=== PATIENT | female | born 1950 | race African-American/Black ===

== ENCOUNTER 2016-11-09 06:18 | Day surgery (SDC) | payer MEDICARE ==
[2016-11-08 10:14] VITALS: BMI 36.6
[~2016-11-09 06:18] MED LIST: HYDROmorphone 1 MG/ML 1 ML SYRINGE IVP PRN; LACTATED RINGERS 1,000 ML IV SCH; LIDOCAINE 1% 20 ML VIAL (10MG/ML) FOR IV START INTRADERMA PRN; MIDAZOLAM 2 MG/2 ML VIAL IV PRN; Pre Op ABX Message 1 EACH MISC MISCELLANE ONE
[2016-11-09] MEDS: PHENYLEPHRINE 10% OPHTH DROPS 5 ML BTL OP ONE ×3 (06:40→06:53)
[2016-11-09] MEDS: CYCLOPENTOLATE 1% OPHTH SOLN 2 ML BTL OP ONE ×3 (06:43→06:51)
[2016-11-09 06:57] VITALS: TEMP 98.1
[2016-11-09 07:04] LABS: Glucose,Whole Blood 173 mg/dL (75-99)
[2016-11-09] MEDS: FLURBIPROFEN 0.03% OPHTH DROPS 2.5 ML BTL OP ONE ×2 (07:24→07:34)
[2016-11-09] MEDS: BUPIVACAINE (PF) 0.75% 5 ML, LIDOCAINE 4% (PF) 5 ML, HYALURONIDASE, HUMAN RECOMB 150 UNIT MISCELLANE ONE ×6 (07:37→07:51)
[2016-11-09] MEDS ORDERED: MIDAZOLAM 2 MG/2 ML VIAL ONE (07:45)
[2016-11-09] MEDS ORDERED: PROPOFOL 10 MG/ML 20 ML VIAL IV ONE (07:45)
[2016-11-09] MEDS ORDERED: LABETALOL 5 MG/ML VIAL MDV ONE (07:45)
[2016-11-09] MEDS ORDERED: EPINEPHrine (PF) 0.5 ML in BALANCED SALT IRRIG SOLN COMB2 500 ML IRRIGATION ONE (07:54)
[2016-11-09] MEDS ORDERED: BALANCED SALT IRRIG SOLN COMB2 15 ML IRRIG.SOLN IRRIGATION ONE (07:56)
[2016-11-09] MEDS ORDERED: TETRACAINE 0.5% OPHTH (PF) DROPS 4 ML BTL LEFT EYE ONE (08:02)
[2016-11-09] MEDS ORDERED: HYALURONATE SODIUM INTRAOCULAR 1 EACH SYRINGE (10MG/ML) INTRAOCULA ONE (08:02)
--- NOTE | 2016-11-09 08:17 | P.OP ---
Date of Procedure: 11/09/16 Procedure(s) Performed: PREOPERATIVE DIAGNOSIS: Cataract, left eye. POSTOPERATIVE DIAGNOSIS: Cataract, left eye. OPERATION: Phacoemulsification cataract, left eye. DESCRIPTION OF PROCEDURE: The patient was taken to the preoperative holding area. Intravenous Propofol was given so as to bring about adequate sedation. The following mixture was given for local anesthesia: 5 mL of 2% lidocaine, 5 mL of 0.75% Marcaine, and 1 mL of Wydase. Approximately 4 mL was injected in the retrobulbar space of the surgical eye. Additional 1 mL was then directed to the temporal area of the surgical eye. This was performed to allow adequate neurological block of the facial muscles. The patient was revived and then taken into the operative room. The patient was prepped and draped in the usual sterile manner for the operative eye. A lid speculum was put into position. The conjunctiva was resected back from the limbus in the 12 o'clock position. Bleeding was controlled with electrocautery. A #69 blade was then used and a half-thickness scleral incision approximately 1-mm posterior to the limbus was made on bare sclera. This was shelved in the clear cornea using a crescent knife. Next a 15-degree blade was used to make a stab incision at the 3 o' clock position at the corneolimbal interface. Keratome blade was then used and the superior wound was extended into the anterior chamber. Viscoelastic was injected into the anterior chamber and to maintain its form. Next, a cystotome was used and a continuous anterior capsulotomy was made without difficulty. Hydrodissection using a blunt cannula and BSS was performed. Phaco probe was then employed and a groove extending from 12 to 6 o'clock in the lens was created. A Franco wand was used through the stab incision so as to perform a divide and conquer technique. Next an irrigation aspiration probe was utilized and any residual cortex was removed from the eye. Again, viscoelastic was injected into the anterior chamber. An Edis posterior chamber lens implant was placed in the cartridge and injected into the anterior chamber without difficulty. The SinAlignAlyticsey hook was utilized to spin the lens into position and this was again performed without any difficulty. The irrigation and aspiration probe was again employed and any residual viscoelastic was removed from the eye. Then BSS was injected into the limbal stab incision and the anterior chamber re-inflated. The conjunctiva was reapproximated using electrocautery. One drop of 0.25% Timoptic was placed over the corneal along with TobraDex ophthalmic ointment. Two sterile patches and a Stakrs eye shield were taped into position. The patient was transported to the recovery room in stable condition. Pathology: none sent Condition: stable Disposition: same day
[2016-11-09 08:18] VITALS: RESP 16
[2016-11-09 08:32] LABS: Glucose,Whole Blood 158 mg/dL (75-99)
[2016-11-09 08:33] VITALS: BP 150/92; PULSE 66
[2016-11-09] MEDS ORDERED: GENTAMICIN/PREDNISOL AC OPHTH OINT 3.5GM OPHTHALMIC ONE (23:00)
[2016-11-09] MEDS ORDERED: TIMOLOL 0.5% OPHTH SOLN (PF) 0.2 ML DROPERETTE OP ONE (23:00)
== END 2016-11-09 09:06 | disposition home or self-care (01) ==
LOC: OR 06:18
PROVIDERS: ATTEND Ophthalmology
DX: E11.36 Type 2 diabetes mellitus with diabetic cataract (principal); Z79.4 Long term (current) use of insulin; I10 Essential (primary) hypertension; E78.5 Hyperlipidemia, unspecified; I48.91 Unspecified atrial fibrillation; Z79.01 Long term (current) use of anticoagulants; F41.9 Anxiety disorder, unspecified; Z79.891 Long term (current) use of opiate analgesic; Z79.899 Other long term (current) drug therapy; Z88.5 Allergy status to narcotic agent; Z88.0 Allergy status to penicillin; Z88.8 Allergy status to other drugs, medicaments and biological substances
CPT/HCPCS: 66984; V2632; J2001; J2250; J3470; J0171; J2704

== ENCOUNTER → 2016-12-08 | Outpatient (CLI) | payer MEDICARE ==
[2016-12-08 16:04] LABS: Blood Urea Nitrogen 11 mg/dL (7-17); Non-African American GFR(MDRD) >60 (>60 ml/min/1.73 sqM)
--- NOTE | 2016-12-08 17:34 | CT ---
EXAMINATION TYPE: CT hip RT wo con DATE OF EXAM: 12/08/2016 5:23 PM COMPARISON: NONE HISTORY: right hip pain, no specified injury CT DLP: 918.5 mGycm Automated exposure control for dose reduction was used. FINDINGS: The hip joint space is fairly well-maintained. Right acetabulum is intact. The right sacroiliac joint is intact. Proximal femur shows no fracture. There is subtle sclerosis in the subcutaneous articular femoral head however.. There is no sign of hip dysplasia. IMPRESSION: THERE IS MINIMAL SCLEROSIS IN THE SUBARTICULAR FEMORAL HEAD THAT COULD RELATE TO MILD MANIFESTATION O F AVASCULAR NECROSIS. NO FRACTURE SEEN. THERE IS NO COLLAPSE SEEN OF THE ARTICULAR SURFACE.
--- NOTE | 2016-12-08 17:36 | CT ---
EXAMINATION TYPE: CT cervical spine wo con DATE OF EXAM: 12/08/2016 5:23 PM COMPARISON: 03/16/2016 HISTORY: neck pain, dizziness CT DLP: 947.3 DLP includes CTA head/neck mGycm Automated exposure control for dose reduction was used. TECHNIQUE: CT scan of the cervical spine is obtained without contrast, axial images are obtained, sa gittal and coronal reformatted images are also reviewed. FINDINGS: The cervical vertebra are fairly normal alignment. There is some narrowing at C5-6 disc spa ce with hypertrophic moderate osteophyte formation anteriorly. There is mild hypertrophic facet arthr opathy in the mid and lower cervical spine. Skull base is intact. There is no sign of a fracture. The re are no cervical ribs. IMPRESSION: Moderate hypertrophic degenerative change at C5-6. Mild anterior spurring also noted at C 2-3. No fracture. No change compared to old exam. No sign of instability.
--- NOTE | 2016-12-08 17:45 | CT ---
EXAMINATION TYPE: CT angio head neck DATE OF EXAM: 12/08/2016 5:23 PM COMPARISON: 11/06/2015 HISTORY: neck pain and headaches, dizziness CT DLP: 947.3 total DLP including c-spine mGycm Automated exposure control for dose reduction was used. TECHNIQUE: Performed with IV Contrast, patient injected with 65cc mL of Omnipaque 350. There are 3-D post processed images.. FINDINGS: There is normal branching pattern of the great vessels on the aortic arch. Thoracic aorta is atheroma tous. There is bilateral flow in the vertebral arteries. Right vertebral artery is much larger than t he left. There is arterial flow in the common internal and external carotid arteries. There is plaque at the carotid artery bifurcations. There is approximate 50% stenosis at the origin of the right int ernal carotid artery. No significant stenosis is seen in the left internal carotid artery. There is m etal artifact from surgical clip in the anterior right middle cranial fossa. There is arterial flow i n the anterior middle and posterior cerebral arteries. There is no sign of aneurysm or neovascularity . There is hypodensity in the anterior right temporal lobe consistent with encephalomalacia. There is normal contrast opacification of the venous sinuses. IMPRESSION: THERE IS SOME PLAQUE AT THE RIGHT CAROTID ARTERY BIFURCATION WITH APPROXIMATE 50% STENOSIS AT THE EDWINA GIN RIGHT INTERNAL CAROTID ARTERY. THIS APPEARS SLIGHTLY WORSE THAN OLD CT SCAN OF 11/06/2015. PREVIOUS SURGERY ON THE RIGHT SIDE WITH RIGHT TEMPORAL LOBE ENCEPHALOMALACIA. CTA BRAIN IS STABLE COM PARED TO OLD EXAM. No evidence of hemodynamically significant stenosis. No evidence of aneurysm.
== END | disposition home or self-care (01) ==
LOC: RADCTMAIN 14:50
PROVIDERS: ATTEND Psychiatry & Neurology Neurology
DX: I65.21 Occlusion and stenosis of right carotid artery (principal); G93.89 Other specified disorders of brain; M47.812 Spondylosis without myelopathy or radiculopathy, cervical region; R93.6 Abnormal findings on diagnostic imaging of limbs; Z79.891 Long term (current) use of opiate analgesic; M25.551 Pain in right hip
CPT/HCPCS: 82565; 84520; 72125; 70496; 70498; 36415; 73700; Q9967

== ENCOUNTER 2016-12-21 08:27 | Day surgery (SDC) | payer MEDICARE ==
[2016-12-20 09:08] VITALS: BMI 36.6
[~2016-12-21 08:27] MED LIST changes: -HYDROmorphone 1 MG/ML 1 ML SYRINGE IVP PRN; -MIDAZOLAM 2 MG/2 ML VIAL IV PRN
[2016-12-21] MEDS: PHENYLEPHRINE 10% OPHTH DROPS 5 ML BTL OP ONE ×3 (09:47→10:07)
[2016-12-21] MEDS: CYCLOPENTOLATE 1% OPHTH SOLN 2 ML BTL OP ONE ×3 (09:50→10:10)
[2016-12-21] MEDS: FLURBIPROFEN 0.03% OPHTH DROPS 2.5 ML BTL OP ONE ×3 (09:53→10:14)
[2016-12-21 10:10] VITALS: RESP 16; TEMP 97
[2016-12-21 10:11] LABS: Glucose,Whole Blood 187 mg/dL (75-99)
[2016-12-21] MEDS ORDERED: PROPOFOL 10 MG/ML 20 ML VIAL IV ONE (10:29)
[2016-12-21] MEDS ORDERED: EPINEPHrine (PF) 0.5 ML in BALANCED SALT IRRIG SOLN COMB2 500 ML IRRIGATION ONE (10:39)
[2016-12-21] MEDS ORDERED: HYALURONATE SODIUM INTRAOCULAR 1 EACH SYRINGE (10MG/ML) INTRAOCULA ONE (10:40)
[2016-12-21] MEDS ORDERED: BALANCED SALT IRRIG SOLN COMB2 15 ML IRRIG.SOLN IRRIGATION ONE (10:40)
[2016-12-21] MEDS ORDERED: TETRACAINE 0.5% OPHTH (PF) DROPS 4 ML BTL RIGHT EYE ONE (10:41)
--- NOTE | 2016-12-21 10:51 | P.OP ---
Date of Procedure: 12/21/16 Procedure(s) Performed: PREOPERATIVE DIAGNOSIS: Cataract, right eye. POSTOPERATIVE DIAGNOSIS: Cataract, right eye. OPERATION: Phacoemulsification cataract, right eye. DESCRIPTION OF PROCEDURE: The patient was taken to the preoperative holding area. Intravenous Propofol was given so as to bring about adequate sedation. The following mixture was given for local anesthesia: 5 mL of 2% lidocaine, 5 mL of 0.75% Marcaine, and 1 mL of Wydase. Approximately 4 mL was injected in the retrobulbar space of the surgical eye. Additional 1 mL was then directed to the temporal area of the surgical eye. This was performed to allow adequate neurological block of the facial muscles. The patient was revived and then taken into the operative room. The patient was prepped and draped in the usual sterile manner for the operative eye. A lid speculum was put into position. The conjunctiva was resected back from the limbus in the 12 o'clock position. Bleeding was controlled with electrocautery. A #69 blade was then used and a half-thickness scleral incision approximately 1-mm posterior to the limbus was made on bare sclera. This was shelved in the clear cornea using a crescent knife. Next a 15-degree blade was used to make a stab incision at the 3 o' clock position at the corneolimbal interface. Keratome blade was then used and the superior wound was extended into the anterior chamber. Viscoelastic was injected into the anterior chamber and to maintain its form. Next, a cystotome was used and a continuous anterior capsulotomy was made without difficulty. Hydrodissection using a blunt cannula and BSS was performed. Phaco probe was then employed and a groove extending from 12 to 6 o'clock in the lens was created. A Franco wand was used through the stab incision so as to perform a divide and conquer technique. Next an irrigation aspiration probe was utilized and any residual cortex was removed from the eye. Again, viscoelastic was injected into the anterior chamber. An Edis posterior chamber lens implant was placed in the cartridge and injected into the anterior chamber without difficulty. The SinPawnUp.comey hook was utilized to spin the lens into position and this was again performed without any difficulty. The irrigation and aspiration probe was again employed and any residual viscoelastic was removed from the eye. Then BSS was injected into the limbal stab incision and the anterior chamber re-inflated. The conjunctiva was reapproximated using electrocautery. One drop of 0.25% Timoptic was placed over the corneal along with TobraDex ophthalmic ointment. Two sterile patches and a Starks eye shield were taped into position. The patient was transported to the recovery room in stable condition. Pathology: none sent Condition: stable Disposition: same day
[2016-12-21 11:09] VITALS: BP 126/76; PULSE 68
[2016-12-21 11:09] LABS: Glucose,Whole Blood 187 mg/dL (75-99)
[2016-12-21] MEDS ORDERED: TIMOLOL 0.5% OPHTH SOLN (PF) 0.2 ML DROPERETTE OP ONE (23:00)
[2016-12-21] MEDS ORDERED: BUPIVACAINE (PF) 0.75% 5 ML, LIDOCAINE 4% (PF) 5 ML, HYALURONIDASE, HUMAN RECOMB 150 UNIT MISCELLANE ONE ×3 (23:00)
[2016-12-21] MEDS ORDERED: GENTAMICIN/PREDNISOL AC OPHTH OINT 3.5GM OPHTHALMIC ONE (23:00)
[2016-12-22] MEDS ORDERED: BUPIVACAINE (PF) 0.75% 5 ML, LIDOCAINE 4% (PF) 5 ML, HYALURONIDASE, HUMAN RECOMB 150 UNIT MISCELLANE ONE ×3 (23:00)
== END 2016-12-21 11:40 | disposition home or self-care (01) ==
LOC: OR 08:27
PROVIDERS: ATTEND Ophthalmology
DX: H25.11 Age-related nuclear cataract, right eye (principal); E11.9 Type 2 diabetes mellitus without complications; J45.909 Unspecified asthma, uncomplicated; I10 Essential (primary) hypertension; E78.5 Hyperlipidemia, unspecified; I49.9 Cardiac arrhythmia, unspecified; I48.91 Unspecified atrial fibrillation; G47.33 Obstructive sleep apnea (adult) (pediatric); Z86.73 Personal history of transient ischemic attack (TIA), and cerebral infarction without residual deficits; Z79.01 Long term (current) use of anticoagulants; Z79.4 Long term (current) use of insulin; Z79.891 Long term (current) use of opiate analgesic; Z79.899 Other long term (current) drug therapy; Z88.5 Allergy status to narcotic agent; Z88.0 Allergy status to penicillin; Z88.8 Allergy status to other drugs, medicaments and biological substances
CPT/HCPCS: 66984; V2632; J2001; J3470; J0171; J2704

== ENCOUNTER 2017-02-04 08:58 | Day surgery (SDC) | payer MEDICARE ==
[2017-02-01 15:08] VITALS: BMI 38.4
[~2017-02-04 08:58] MED LIST changes: +DEXAMETHASONE SOD PHOSPHATE 10 MG/ML 1 ML VIAL IV ONE; +HEPARIN SODIUM,PORCINE 5,000 UNIT/ML 1 ML VIAL SQ ONE; -LACTATED RINGERS 1,000 ML IV SCH; +ONDANSETRON 4 MG/2 ML VIAL IVP ONE; -Pre Op ABX Message 1 EACH MISC MISCELLANE ONE; +SCOPOLAMINE 1.5MG/72HR PATCH TRANSDERM ONE; +ceFAZolin 2 GM in SODIUM CHLORIDE 0.9% 100 ML IVPB ONE; +fentaNYL (PF) 50 MCG/ML 2 ML AMP IV PRN
[2017-02-04] MEDS: LACTATED RINGERS 1,000 ML IV SCH (09:38)
[2017-02-04 09:41] LABS: Glucose,Whole Blood 149 mg/dL (75-99)
[2017-02-04] MEDS ORDERED: MIDAZOLAM 2 MG/2 ML VIAL IVP ONE (09:49)
[2017-02-04] MEDS ORDERED: ACETAMINOPHEN IV (For NPO) 1,000 MG in EMPTY BAG 1 BAG IVPB STA (09:53)
--- NOTE | 2017-02-04 09:53 | P.GSHP ---
History of Present Illness H&P Date: 02/04/17 CHIEF COMPLAINT: Cholecystitis HISTORY OF PRESENT ILLNESS: The patient is a 66-year-old female who presents with history of epigastric including right upper quadrant abdominal pain. She underwent diagnostic studies for her gallbladder. Separately her clinical picture was consistent with cholecystitis. Now she presents for surgical intervention. PAST MEDICAL HISTORY: Please see list PAST SURGICAL HISTORY: Please see list MEDICATIONS: Please see list ALLERGIES: Denies. SOCIAL HISTORY: No illicit drug use or recent tobacco use FAMILY HISTORY: Pertinent for gallbladder disease REVIEW OF ORGAN SYSTEMS: CONSTITUTIONAL: No reports of fevers or chills. HEENT: Denies any troubles with the vision or hearing. PHYSICAL EXAM: VITAL SIGNS: Afebrile vital signs stable GENERAL: Well-developed pleasant in no acute distress. HEENT: No scleral icterus. Extraocular movements grossly intact. Moist buccal mucosa. NECK: Supple without lymphadenopathy. CHEST: Unlabored respirations. Equal bilateral excursions. CARDIOVASCULAR: Irregular rate irregular rhythm. Distal 2+ pulses. ABDOMEN: Soft, nondistended. Tender along the epigastrium and right upper quadrant. MUSCULOSKELETAL: No clubbing, cyanosis, or edema. NEURO: Cranial nerves II to XII within normal limits. No focal or lateralizing signs. PSYCH: Alert and oriented to person, place and time. ASSESSMENT: 1. Epigastric and right upper quadrant abdominal pain 2. Chronic cholecystitis 3. Symptomatic gallstones. PLAN: 1. Will need a laparoscopic cholecystectomy possible open. Benefits and risks were described. 2. Heparin for DVT prophylaxis 5000 units. 3. Antibiotic prophylaxis. Past Medical History Past Medical History: Atrial Fibrillation, Asthma, CVA/TIA, Diabetes Mellitus, Hyperlipidemia, Hypertension, Sleep Apnea/CPAP/BIPAP Additional Past Medical History / Comment(s): neuropathy History of Any Multi-Drug Resistant Organisms: None Reported Past Surgical History: Hysterectomy, Tonsillectomy Additional Past Surgical History / Comment(s): cerebral aneursym repair Past Anesthesia/Blood Transfusion Reactions: Motion Sickness Additional Past Anesthesia/Blood Transfusion Reaction / Comment(s): Also has problems with dizziness. Smoking Status: Never smoker - Past Family History Mother Family Medical History: No Reported History Father Family Medical History: No Reported History Brother(s) Family Medical History: Cancer Medications and Allergies Home Medications Medication Instructions Recorded Confirmed Type Atorvastatin Calcium [Lipitor] 10 mg PO HS 03/26/14 02/04/17 History Spironolactone [Aldactone] 100 mg PO BID 03/26/14 02/04/17 History Apixaban [Eliquis] 5 mg PO BID 06/15/16 02/01/17 History Ergocalciferol [Vitamin D2] 50,000 unit PO Q14D 06/15/16 02/04/17 History Insulin Aspart [NovoLOG] 20 unit SQ TID-W/MEALS 06/15/16 02/04/17 History Insulin Aspart [NovoLOG] See Protocol SQ AC-TID 06/15/16 02/04/17 History Insulin Detemir [Levemir] 40 unit SQ HS 06/15/16 02/04/17 History Losartan Potassium [Cozaar] 25 mg PO QAM 06/15/16 02/04/17 History Taztia Xt 180mg 180 mg PO QAM 06/15/16 02/04/17 History Meclizine HCl 25 mg PO DAILY 11/08/16 02/04/17 History ALPRAZolam [Xanax] 1 tab PO DAILY PRN 11/09/16 02/04/17 History Liraglutide [Victoza 2-Haja] 1.2 mg SQ DAILY 12/20/16 02/04/17 History Pioglitazone HCl [Actos] 30 mg PO DAILY 12/20/16 02/01/17 History Hydrocodone/Acetaminophen [[place] 1 tab PO Q6HR PRN 02/01/17 02/04/17 History 7.5-325] metFORMIN HCL [Glucophage] 500 mg PO BID 02/01/17 02/04/17 History Allergies Allergy/AdvReac Type Severity Reaction Status Date / Time celecoxib [From Celebrex] Allergy Unknown Verified 02/04/17 09:28 morphine Allergy Hallucinati Verified 02/04/17 09:28 ons Penicillins Allergy Rash/Hives Verified 02/04/17 09:28 Surgical - Exam Vital Signs Temp Pulse Resp BP Pulse Ox 97.7 F 89 16 197/97 98 02/04/17 09:30 02/04/17 09:30 02/04/17 09:30 02/04/17 09:30 02/04/17 09:30 Results - Labs Abnormal Lab Results - Last 24 Hours (Table) 02/04/17 Range/Units 09:35 POC Glucose (mg/dL) 149 H (75-99) mg/dL
[2017-02-04] MEDS ORDERED: ACETAMINOPHEN IV (For NPO) 1,000 MG/100 ML VIAL IVPB ONE (10:11)
[2017-02-04 10:14] LABS: Basophils % (A) 1 %; CH 30.8; CHCM 32.2; Eosinophils # (A) 0.2 k/uL (0-0.7); Eosinophils % (A) 3 %; HDW 2.38; HGB 12.7 gm/dL (11.4-16.0); Luc # (Auto) 0.21; Luc % (Auto) 4; Lymphocytes # (A) 1.8 k/uL (1.0-4.8); Lymphocytes % (A) 34 %; MCH 30.4 pg (25.0-35.0); MCHC 31.7 g/dL (31.0-37.0); Mean Platelet Volume 8.4; Monocytes # (A) 0.3 k/uL (0-1.0); Monocytes % (A) 5 %; Neutrophils # (A) 2.7 k/uL (1.3-7.7); Neutrophils % (A) 53 %; RBC 4.17 m/uL (3.80-5.40); RDW 13.9 % (11.5-15.5); WBC 5.1 k/uL (3.8-10.6)
[2017-02-04] MEDS ORDERED: LIDOCAINE 1% INJ 10MG/ML (20 ML MDV) ONE (10:15)
[2017-02-04] MEDS ORDERED: MIDAZOLAM 2 MG/2 ML VIAL ONE (10:15)
[2017-02-04] MEDS ORDERED: ROCURONIUM BROMIDE 10 MG/ML 10 ML VIAL IV ONE (10:15)
[2017-02-04] MEDS ORDERED: fentaNYL (PF) 50 MCG/ML 2 ML AMP ONE (10:15)
[2017-02-04] MEDS ORDERED: NEOSTIGMINE 1 MG/ML 10 ML VIAL ONE (10:15)
[2017-02-04] MEDS ORDERED: GLYCOPYRROLATE 0.2 MG/ML 2 ML VIAL ONE (10:15)
[2017-02-04] MEDS ORDERED: LABETALOL 5 MG/ML VIAL MDV ONE (10:15)
[2017-02-04] MEDS ORDERED: SUCCINYLCHOLINE CHLORIDE VIAL 200 MG/10 ML VIAL IV ONE (10:15)
[2017-02-04] MEDS ORDERED: PROPOFOL 10 MG/ML 20 ML VIAL IV ONE (10:15)
[2017-02-04 10:23] LABS: ALT 30 U/L (9-52); AST 17 U/L (14-36); Alkaline Phosphatase 76 U/L (38-126); Anion Gap 7 mmol/L; Blood Urea Nitrogen 9 mg/dL (7-17); Calcium 8.9 mg/dL (8.4-10.2); Carbon Dioxide 30 mmol/L (22-30); Chloride 106 mmol/L (98-107); Glucose 155 mg/dL (74-99); Non-African American GFR(MDRD) >60 (>60 ml/min/1.73 sqM); Sodium 143 mmol/L (137-145); Total Bilirubin 0.6 mg/dL (0.2-1.3); Total Protein 7.3 g/dL (6.3-8.2)
[2017-02-04 10:36] LABS: Partial Thromboplastin Time 23.6 sec (22.0-30.0); Prothrombin Time 10.4 sec (9.0-12.0)
[2017-02-04] MEDS ORDERED: BUPIVACAIN-EPI 0.25%-1:200,000 30 ML VIAL SQ ONE ×2 (10:42)
[2017-02-04] MEDS ORDERED: LACTATED RINGERS 1,000 ML IV ONE (11:12)
--- NOTE | 2017-02-04 11:23 | P.PCN ---
Date of Procedure: 02/04/17 Preoperative Diagnosis: Chronic cholecystitis Postoperative Diagnosis: Chronic cholecystitis Procedure(s) Performed: Laparoscopic cholecystectomy Implants: Anesthesia: GETA, local Surgeon: Maribel Granado Estimated Blood Loss (ml): 10 Pathology: other (Gallbladder) Condition: stable Disposition: same day Indications for Procedure: Operative Findings: The hepatic fossa was cauterized for patient's increased risk for bleeding as she is on a blood thinner. Liver surface with a 1 cm transverse defect also cauterized. Absolutely no bleeding found along hepatic fossa and liver defect following completion of cholecystectomy. Fascia less than 8 mm. Description of Procedure:
[2017-02-04] MEDS ORDERED: NALOXONE 0.4 MG/ML 1 ML VIAL IV PRN (11:25)
[2017-02-04] MEDS ORDERED: ONDANSETRON 4 MG/2 ML VIAL IVP PRN (11:44)
--- NOTE | 2017-02-04 11:44 | P.PN ---
Progress Note - Text Upon further discussion with the patient's family member, patient lives alone. Postoperatively, the patient is hypertensive. She has history of obstructive sleep apnea. Recommend overnight observation given high risks including comorbidities.
[2017-02-04] MEDS ORDERED: ALPRAZolam 0.5 MG TAB PO PRN (11:47)
[2017-02-04] MEDS ORDERED: hydrALAZINE HCL 20 MG/ML 1 ML VIAL IVP ONE (12:00)
[2017-02-04 12:07] LABS: Glucose,Whole Blood 211 mg/dL (75-99)
[2017-02-04] MEDS ORDERED: INSULIN LISPRO (humaLOG) 300 UNIT/3 ML VIAL SQ ONE (12:09)
[2017-02-04] MEDS: HYDROcodone/APAP 7.5-325MG 1 EACH TAB PO PRN (14:13)
[2017-02-04] MEDS: HEPARIN SODIUM,PORCINE 5,000 UNIT/ML 1 ML VIAL SQ SCH (17:10)
[2017-02-04 17:11] LABS: Glucose,Whole Blood 245 mg/dL (75-99)
[2017-02-04 17:46] LABS: Hemoglobin A1C 9.9 % (4.2-6.1)
[2017-02-04] MEDS: INSULIN LISPRO (humaLOG) 300 UNIT/3 ML VIAL SQ SCH (17:52)
[2017-02-04] MEDS: SPIRONOLACTONE 25 MG TAB PO SCH (20:36)
[2017-02-04] MEDS: SODIUM CHLORIDE 0.9% 1,000 ML IV SCH (20:38)
[2017-02-05 00:17] LABS: Glucose,Whole Blood 315 mg/dL (75-99)
[2017-02-05] MEDS: INSULIN LISPRO (humaLOG) 300 UNIT/3 ML VIAL SQ SCH ×3 (00:21→12:00)
[2017-02-05] MEDS: HEPARIN SODIUM,PORCINE 5,000 UNIT/ML 1 ML VIAL SQ SCH ×2 (00:21→08:20)
[2017-02-05 06:09] LABS: Glucose,Whole Blood 247 mg/dL (75-99)
[2017-02-05] MEDS: LACTATED RINGERS 1,000 ML IV SCH (07:28)
[2017-02-05 08:00] VITALS: RESP 19
--- NOTE | 2017-02-05 08:07 | P.PN ---
Progress Note - Text Patient seen and evaluated this evening. Her pain is well-controlled. Per discussion with nursing, patient is noncompliant with diabetic care including medications. I confirmed with the patient of her blood thinners as she takes at home. Given her risk of bleed following her procedure, recommend observation. We'll repeat labs particularly CBC. Patient had severe hypertension and we'll also monitor.
[2017-02-05] MEDS: SPIRONOLACTONE 25 MG TAB PO SCH (08:19)
[2017-02-05 08:29] LABS: CH 30.3; CHCM 31.5; HCT 40.8 % (34.0-46.0); HGB 12.8 gm/dL (11.4-16.0); MCH 30.4 pg (25.0-35.0); MCHC 31.4 g/dL (31.0-37.0); MCV 96.6 fL (80.0-100.0); Mean Platelet Volume 7.9; RBC 4.22 m/uL (3.80-5.40); RDW 13.5 % (11.5-15.5); WBC 8.6 k/uL (3.8-10.6)
[2017-02-05 08:43] LABS: ALT 54 U/L (9-52); AST 42 U/L (14-36); Alkaline Phosphatase 80 U/L (38-126); Anion Gap 9 mmol/L; Blood Urea Nitrogen 12 mg/dL (7-17); Calcium 9.3 mg/dL (8.4-10.2); Carbon Dioxide 28 mmol/L (22-30); Chloride 104 mmol/L (98-107); Glucose 288 mg/dL (74-99); Non-African American GFR(MDRD) >60 (>60 ml/min/1.73 sqM); Potassium 4.5 mmol/L (3.5-5.1); Sodium 141 mmol/L (137-145); Total Bilirubin 0.5 mg/dL (0.2-1.3); Total Protein 7.4 g/dL (6.3-8.2)
[2017-02-05 08:46] LABS: INR 1.1 (<1.1); Prothrombin Time 10.8 sec (9.0-12.0)
[2017-02-05] MEDS ORDERED: DILTIAZEM CD 180 MG CAP.ER.24H PO SCH (09:00)
[2017-02-05] MEDS ORDERED: MECLIZINE 25 MG TAB PO SCH (09:00)
[2017-02-05] MEDS ORDERED: LOSARTAN 25 MG TAB PO SCH (09:00)
[2017-02-05] MEDS: SODIUM CHLORIDE 0.9% 1,000 ML IV SCH (11:10)
[2017-02-05 11:46] LABS: Glucose,Whole Blood 311 mg/dL (75-99)
[2017-02-05 12:32] VITALS: BP 171/74; PULSE 69; TEMP 97.8
[2017-02-05] MEDS: HYDROcodone/APAP 7.5-325MG 1 EACH TAB PO PRN (13:20)
--- NOTE | 2017-02-06 00:12 | P.PN ---
Subjective Principal diagnosis: Cholecystitis The patient is a 66-year-old female status post cholecystectomy. She was observed overnight for hypertension including history of obstructive sleep apnea. This morning, she feels great. She is tolerating diet. Her pain is well-controlled. Objective - Vital Signs Vital signs: Vital Signs Temp 97.8 F 02/05/17 12:32 Pulse 69 02/05/17 12:32 Resp 19 02/05/17 12:32 BP 171/74 02/05/17 12:32 Pulse Ox 98 02/05/17 12:32 Intake & Output 02/05/17 02/05/17 02/06/17 06:59 18:59 06:59 Intake Total 400 Output Total 600 Balance -200 Weight 95.254 kg Intake: Oral 400 Output: Urine 600 Other: Voiding Method Toilet # Voids 1 - Exam GENERAL: Well developed and in no acute distress. Pleasant. HEENT: No sclera icterus. Extraocular movements grossly intact. Moist buccal mucosa. Head is atraumatic, normocephalic. Hears conversational speech. No nasal drainage. NECK: Supple without lymphadenopathy. No JV distention. CHEST: Non-labored respirations and equal bilateral excursions. CARDIOVASCULAR: Regular rate and rhythm. Palpable 2+ radial pulses. ABDOMEN: Soft. Nondistended. No peritonitis. Incisions is clean dry and intact with Dermabond. MUSCULOSKELETAL: No clubbing, cyanosis or edema. NEUROLOGIC: No focal or lateralizing signs. PSYCH: Appropriate affect. Alert and oriented to person, place and time. - Labs CBC & Chem 7: 02/05/17 08:14 02/05/17 08:14 Labs: Abnormal Lab Results - Last 24 Hours (Table) 02/05/17 02/05/17 02/05/17 Range/Units 00:11 05:57 08:14 Glucose 288 H (74-99) mg/dL POC Glucose (mg/dL) 315 H 247 H (75-99) mg/dL AST 42 H (14-36) U/L ALT 54 H (9-52) U/L 02/05/17 Range/Units 11:44 Glucose (74-99) mg/dL POC Glucose (mg/dL) 311 H (75-99) mg/dL AST (14-36) U/L ALT (9-52) U/L Assessment and Plan (1) Hypertensive heart disease with CHF (congestive heart failure) Status: Acute (2) Poorly controlled type 2 diabetes mellitus Status: Acute (3) Obstructive sleep apnea Status: Acute (4) Medical non-compliance Status: Acute (5) Morbid obesity due to excess calories Status: Acute (6) BMI 38.0-38.9,adult Status: Acute Plan: 1. Patient is clear for surgical standpoint for discharge. 2. Follow-up in the office within 2-3 days.
--- NOTE | 2017-02-06 00:15 | P.DS ---
Providers Date of admission: 02/04/2017 Expected date of discharge: 02/05/17 Attending physician: Maribel Granado Primary care physician: Ivan Bell - Discharge Diagnosis(es) (1) Hypertensive heart disease with CHF (congestive heart failure) Status: Acute (2) Poorly controlled type 2 diabetes mellitus Status: Acute (3) Obstructive sleep apnea Status: Acute (4) Medical non-compliance Status: Acute (5) Morbid obesity due to excess calories Status: Acute (6) BMI 38.0-38.9,adult Status: Acute (7) Cholecystitis Status: Acute (8) S/P cholecystectomy Status: Acute Hospital Course: The patient is a 66-year-old female who underwent a laparoscopic cholecystectomy without sequelae. Intra-Op, she had moderate hypertension. She has history of obstructive sleep apnea. She also has history of poorly controlled diabetes. She was admitted for observation. Procedures: Laparoscopic cholecystectomy. Patient Condition at Discharge: Stable Plan - Discharge Summary New Discharge Prescriptions: No Action Spironolactone [Aldactone] 100 mg PO BID Atorvastatin Calcium [Lipitor] 10 mg PO HS Losartan Potassium [Cozaar] 25 mg PO QAM Ergocalciferol [Vitamin D2] 50,000 unit PO Q14D Apixaban [Eliquis] 5 mg PO BID Insulin Detemir [Levemir] 40 unit SQ HS Insulin Aspart [NovoLOG] 20 unit SQ TID-W/MEALS Insulin Aspart [NovoLOG] See Protocol SQ AC-TID Taztia Xt 180mg 180 mg PO QAM Diazepam [Valium] 5 mg PO BID #6 tab Meclizine HCl 25 mg PO DAILY ALPRAZolam [Xanax] 1 tab PO DAILY PRN PRN Reason: Anxiety Pioglitazone HCl [Actos] 30 mg PO DAILY Liraglutide [Victoza 2-Haja] 1.2 mg SQ DAILY metFORMIN HCL [Glucophage] 500 mg PO BID Hydrocodone/Acetaminophen [[place] 7.5-325] 7.5 mg PO Q6HR PRN PRN Reason: Pain Discharge Medication List Atorvastatin Calcium [Lipitor] 10 mg PO HS 03/26/14 [History] Spironolactone [Aldactone] 100 mg PO BID 03/26/14 [History] Apixaban [Eliquis] 5 mg PO BID 06/15/16 [History] Diazepam [Valium] 5 mg PO BID #6 tab 06/15/16 [Rx] Ergocalciferol [Vitamin D2] 50,000 unit PO Q14D 06/15/16 [History] Insulin Aspart [NovoLOG] 20 unit SQ TID-W/MEALS 06/15/16 [History] Insulin Aspart [NovoLOG] See Protocol SQ AC-TID 06/15/16 [History] Insulin Detemir [Levemir] 40 unit SQ HS 06/15/16 [History] Losartan Potassium [Cozaar] 25 mg PO QAM 06/15/16 [History] Taztia Xt 180mg 180 mg PO QAM 06/15/16 [History] Meclizine HCl 25 mg PO DAILY 11/08/16 [History] ALPRAZolam [Xanax] 1 tab PO DAILY PRN 11/09/16 [History] Liraglutide [Victoza 2-Haja] 1.2 mg SQ DAILY 12/20/16 [History] Pioglitazone HCl [Actos] 30 mg PO DAILY 12/20/16 [History] Hydrocodone/Acetaminophen [[place] 7.5-325] 7.5 mg PO Q6HR PRN 02/01/17 [History] metFORMIN HCL [Glucophage] 500 mg PO BID 02/01/17 [History] Follow up Appointment(s)/Referral(s): Maribel Granado MD [STAFF PHYSICIAN] - 02/08/17 (Please call to confirm time. ) Patient Instructions/Handouts: Laparoscopic Cholecystectomy (DC) Activity/Diet/Wound Care/Special Instructions: Low-fat diet. May shower. No bath tub soaks. Start blood thinner on Tuesday. May take tylenol for pain. Discharge Disposition: HOME SELF-CARE
== END 2017-02-05 14:45 | disposition home or self-care (01) ==
LOC: OR 08:58 → 6PED 11:39 → OR 02-05 14:45
PROVIDERS: ATTEND Surgery Plastic and Reconstructive Surgery
DX: K80.10 Calculus of gallbladder with chronic cholecystitis without obstruction (principal); I48.91 Unspecified atrial fibrillation; J45.909 Unspecified asthma, uncomplicated; Z86.73 Personal history of transient ischemic attack (TIA), and cerebral infarction without residual deficits; E11.9 Type 2 diabetes mellitus without complications; Z79.4 Long term (current) use of insulin; Z79.84 Long term (current) use of oral hypoglycemic drugs; E78.5 Hyperlipidemia, unspecified; I10 Essential (primary) hypertension; G47.33 Obstructive sleep apnea (adult) (pediatric); Z99.89 Dependence on other enabling machines and devices; Z79.02 Long term (current) use of antithrombotics/antiplatelets; Z79.899 Other long term (current) drug therapy; Z88.5 Allergy status to narcotic agent; Z88.0 Allergy status to penicillin; Z88.8 Allergy status to other drugs, medicaments and biological substances
CPT/HCPCS: 88304; 80053 ×2; 83036; 85025; 85027; 85610 ×2; 85730; 47562; J2250; J0330; J0360; J1644 ×2; J1100; J2710; J0690; J2405; J2001; J3010; J0131; J2704

== ENCOUNTER → 2017-09-22 | Outpatient (CLI) | payer MEDICARE ==
--- NOTE | 2017-09-22 16:29 | PN ---
PROGRESS NOTE DATE OF SERVICE: 09/22/2017. 67-year-old lady has been followed in [facility] for treatment of obstructive sleep apnea-hypopnea syndrome. Her previous visit was about 1-1/2 year ago. She continued to use her equipment basically every night without significant problems related to the mask or pressure. She changed to humidity and she knows how to do that. [place] Sleepiness Scale today is 16, which is above normal. Sometimes she has episodes of dizziness at night and also during the day. I checked her CPAP unit. Usage is 100% of the time more than 4 hours. Average usage is 6.4 hours. Pressure is 11 cm of water. Leak is 20 L/minute, which is in acceptable range. Apnea-hypopnea index is only 1.2, which is a normal range. MEDICATIONS: Eliquis, Humalog, Levemir, spironolactone, [place], Antivert, Lipitor, diazepam, metformin, losartan. PHYSICAL EXAM: GENERAL Patient in no distress. VITAL SIGNS BP 170/110, HR 79, RR 16, height 5 feet 1-3/4, weight 208.8, BMI 38.4. Patient lost 10 pounds since previous visit. Temperature 98.2, oxygen saturation room air 99%. No chest pain. No shortness of breath. No headache, but patient had slight dizziness. According to patient in the usual range. [facility] CHRISTIANSON, evaluation of oropharynx showed extremely low position of soft palate. NECK Supple, no JVD. Thyroid is not palpable. LUNGS Clear to percussion and to auscultation. Good air exchange. No wheezing or rhonchi. HEART S1, S2 with some irregularities. ABDOMEN: Obese. Soft and nontender. Bowel sounds are present. No organomegaly appreciated. EXTREMITIES 1+ ankle edema. HAND PATCHER Awake, alert, and oriented X3. Cranial nerves 2 to 7 intact. There is no fasciculation or atrophy. noted. No focal deficits observed. IMPRESSION: 1. Obstructive sleep apnea-hypopnea syndrome on control with CPAP. Patient demonstrated 100% compliance with treatment benefitting from treatment. 2. Obesity. Patient lost 10 pounds. 3. Hypertension. Blood pressure increased today in the office. The patient did take her medication in the morning. No chest pain. No shortness of breath. Slight dizziness but in regular range according to patient. She has episodes of dizziness. 4. Diabetes mellitus. 5. History of atrial fibrillation during auscultation some irregularities of heart rate, but it is difficult to tell is it atrial fibrillation because most of the beats sounds regular. 6. Diabetes mellitus. 7. Hyperlipidemia. 8. Anxiety. PLAN: 1. Continue treatment with CPAP every night for the whole night. 2. Prescription for nasal mask, tube, filters, new chamber for heated humidity. 3. Patient will follow her blood pressure, low-sodium diet. If any changes of her condition, she will go to emergency room. She will follow with her primary care physician for possible adjustments of her blood pressure medications. 4. Continue losing weight. 5. No driving if feeling sleepiness. 6. Precautions related to dizziness. Thank you very much for allowing me to participate in management of your patient. Sincerely, Jeff Landon MD, PhD, FAASM Diplomat of [employer] Apprentice [employer] [facility] [place] MMODL / IJN: [id number] /
== END | disposition home or self-care (01) ==
LOC: SLEEP 14:18
PROVIDERS: ATTEND Internal Medicine
DX: G47.33 Obstructive sleep apnea (adult) (pediatric) (principal); E66.9 Obesity, unspecified; I10 Essential (primary) hypertension; R42 Dizziness and giddiness; E11.9 Type 2 diabetes mellitus without complications; I48.91 Unspecified atrial fibrillation; E78.5 Hyperlipidemia, unspecified; F41.9 Anxiety disorder, unspecified; Z99.89 Dependence on other enabling machines and devices; Z79.4 Long term (current) use of insulin; Z68.38 Body mass index [BMI] 38.0-38.9, adult; Z79.891 Long term (current) use of opiate analgesic; Z79.84 Long term (current) use of oral hypoglycemic drugs; Z79.01 Long term (current) use of anticoagulants

== ENCOUNTER → 2017-10-04 | Outpatient (CLI) | payer MEDICARE ==
[2017-10-04 16:54] LABS: Anion Gap 12 mmol/L; Blood Urea Nitrogen 12 mg/dL (7-17); Calcium 9.8 mg/dL (8.4-10.2); Carbon Dioxide 30 mmol/L (22-30); Chloride 102 mmol/L (98-107); Glucose 214 mg/dL (74-99); Potassium 4.5 mmol/L (3.5-5.1); Sodium 144 mmol/L (137-145)
== END | disposition home or self-care (01) ==
LOC: LABWHC1 15:56
PROVIDERS: ATTEND Internal Medicine Cardiovascular Disease
DX: R60.0 Localized edema (principal)
CPT/HCPCS: 36415; 80048; 83880

== ENCOUNTER → 2017-11-08 | Outpatient (CLI) | payer MEDICARE ==
--- NOTE | 2017-11-08 16:52 | CT ---
EXAMINATION TYPE: CT cervical spine wo con DATE OF EXAM: 11/08/2017 COMPARISON: CT cervical spine December 08, 2016. HISTORY: Cervicalgia per order. Left-sided neck pain radiating to arm per patient. CT DLP: 371.5 mGycm. Automated Exposure Control for Dose Reduction was Utilized. TECHNIQUE: CT scan of the cervical spine is obtained without contrast, axial images are obtained, sa gittal and coronal reformatted images are also reviewed. FINDINGS: Cervical spine is visualized in its entirety from C1 through upper thoracic levels, redemon strates straightened alignment without evidence of acute fracture or dislocation. Prevertebral soft tissue appears within normal limits. The C1-C2 articulation is within normal limits on the coronal i mages. Vertebral body heights are maintained. There is unrecognized ossific fusion C2-C3 levels anterior and posterior elements not detailed on prior study causing improper labeling. There is mild to moderate disc space narrowing with vacuum disc phenomenon C3-C4 level level redemonstrated with anterior infer ior spur C3 level again seen. There is advanced anterior spurring with moderate disc space narrowing C6-C7 level redemonstrated. Spinal canal is grossly preserved on sagittal images. Review of axial images shows some left-sided uncovertebral facet arthropathy C3-C4 level contributing to moderate left-sided neural foraminal narrowing. Axial images at C4-C5 level redemonstrate uncovertebral facet degenerative changes causing advanced l eft-sided neural foraminal narrowing on the left similar to prior. Axial images at C5-C6 level show uncovertebral facet degenerative changes bilaterally causing mild-to -moderate bilateral neural foraminal narrowing similar prior. Axial images below this are within normal limits. There are symmetric T1 ribs using this counting sys tem. There are scattered prominent but subcentimeter lymph nodes throughout the visualized neck bilaterall y redemonstrated without significant change from prior. Lung apices are clear. Thyroid gland is felt within normal limits. IMPRESSION: There is stable straightened alignment with multilevel degenerative changes seen as detai led above. Ossific fusion C2 and C3 anterior and posterior elements is noted not recognized on prior report.
== END | disposition home or self-care (01) ==
LOC: RADCTMAIN 15:45
PROVIDERS: ATTEND Psychiatry & Neurology Neurology
DX: M47.812 Spondylosis without myelopathy or radiculopathy, cervical region (principal); M43.22 Fusion of spine, cervical region; Z88.0 Allergy status to penicillin; Z88.5 Allergy status to narcotic agent; Z88.6 Allergy status to analgesic agent
CPT/HCPCS: 72125

== ENCOUNTER 2018-02-03 17:16 | Emergency (ER) | payer MEDICARE ==
[2018-02-03 17:41] VITALS: BP 211/110; PULSE 103; RESP 18; TEMP 99.2
[2018-02-03] MEDS ORDERED: ORPHENADRINE 30 MG/ML 2 ML VIAL IM STA (18:25)
[2018-02-03] MEDS ORDERED: KETOROLAC 60 MG/2 ML VIAL IM STA (18:25)
--- NOTE | 2018-02-03 18:29 | ED ---
General Adult HPI - General Chief complaint: Extremity Problem,Nontraumatic Stated complaint: Neck pain Time Seen by Provider: 02/03/18 18:11 Source: patient, RN notes reviewed Mode of arrival: ambulatory Limitations: no limitations - History of Present Illness Initial comments: Patient is a pleasant 67-year-old female presenting to the emergency Department with neck pain. Patient does have chronic neck problems. Onset of symptoms was yesterday. Symptoms were present when she awoke and worsened. Discomfort is positional. Discomfort limits turning her head towards the right however does not have difficulty turning towards left. Patient feels fullness of her trapezius muscle. Patient states there is also some discomfort of the shoulder. Patient does have a history of similar problems previously associated with neck problems. - Related Data Home Medications Medication Instructions Recorded Confirmed Spironolactone [Aldactone] 100 mg PO BID 03/26/14 04/04/17 Apixaban [Eliquis] 5 mg PO BID 06/15/16 04/04/17 Ergocalciferol [Vitamin D2] 50,000 unit PO Q14D 06/15/16 04/04/17 Insulin Aspart [NovoLOG] 20 unit SQ TID-W/MEALS 06/15/16 04/04/17 Insulin Detemir [Levemir] 40 unit SQ HS 06/15/16 04/04/17 Losartan Potassium [Cozaar] 25 mg PO QAM 06/15/16 04/04/17 Taztia Xt 180mg 180 mg PO QAM 06/15/16 04/04/17 Meclizine HCl 25 mg PO DAILY PRN 11/08/16 04/04/17 Pioglitazone HCl [Actos] 30 mg PO DAILY 12/20/16 04/04/17 Hydrocodone/Acetaminophen [[place] 7.5 mg PO Q6HR PRN 02/01/17 04/04/17 7.5-325] metFORMIN HCL [Glucophage] 500 mg PO BID 02/01/17 04/04/17 Previous Rx's Medication Instructions Recorded Diazepam [Valium] 5 mg PO BID #6 tab 06/15/16 Allergies Allergy/AdvReac Type Severity Reaction Status Date / Time celecoxib [From Celebrex] Allergy Unknown Verified 02/03/18 17:41 morphine Allergy Hallucinati Verified 02/03/18 17:41 ons Penicillins Allergy Rash/Hives Verified 02/03/18 17:41 Review of Systems ROS Statement: Those systems with pertinent positive or pertinent negative responses have been documented in the HPI. ROS Other: All systems not noted in ROS Statement are negative. Constitutional: Denies: fever Eyes: Denies: eye pain ENT: Denies: ear pain Respiratory: Denies: cough, dyspnea Cardiovascular: Reports: chest pain (Patient states discomfort does extend towards the chest from the neck, to the region of the clavicle.) Endocrine: Denies: fatigue Gastrointestinal: Denies: abdominal pain Genitourinary: Denies: dysuria Musculoskeletal: Denies: joint swelling Skin: Denies: rash Neurological: Denies: headache, weakness, confusion Past Medical History Past Medical History: Atrial Fibrillation, Asthma, CVA/TIA, Diabetes Mellitus, Hyperlipidemia, Hypertension, Sleep Apnea/CPAP/BIPAP Additional Past Medical History / Comment(s): neuropathy History of Any Multi-Drug Resistant Organisms: None Reported Past Surgical History: Hysterectomy, Tonsillectomy Additional Past Surgical History / Comment(s): cerebral aneursym repair Past Anesthesia/Blood Transfusion Reactions: Motion Sickness Additional Past Anesthesia/Blood Transfusion Reaction / Comment(s): Also has problems with dizziness. Past Psychological History: No Psychological Hx Reported Smoking Status: Never smoker Past Alcohol Use History: None Reported Past Drug Use History: None Reported - Past Family History Mother Family Medical History: No Reported History Father Family Medical History: No Reported History Brother(s) Family Medical History: Cancer, Diabetes Mellitus General Exam Limitations: no limitations General appearance: alert, in no apparent distress Head exam: Present: atraumatic Eye exam: Present: normal appearance Neck exam: Present: tenderness (Minimal tenderness right paraspinal musculature. ), other (Limited range of motion with turning the head to the right.) Respiratory exam: Present: normal lung sounds bilaterally. Absent: chest wall tenderness Cardiovascular Exam: Present: regular rate, normal rhythm Expanded Peripheral pulses: 2+: Radial (R) GI/Abdominal exam: Present: soft. Absent: tenderness Extremities exam: Present: other (Mild tenderness right deltoid. Distally the right extremity is neurovascularly intact. Pain with active range of motion. Passive range of motion as tolerated.) Back exam: Present: tenderness (Tenderness and fullness to the right trapezius muscle between the cervical spine and shoulder) Neurological exam: Present: alert. Absent: motor sensory deficit Psychiatric exam: Present: normal affect, normal mood Skin exam: Present: normal color Course Vital Signs 02/03/18 17:39 Temperature 99.2 F Pulse Rate 103 H Respiratory 18 Rate Blood Pressure 211/110 O2 Sat by Pulse 100 Oximetry Disposition Clinical Impression: Trapezius muscle strain, Cervical strain Disposition: HOME SELF-CARE Condition: Stable Instructions: Cervical Strain (ED), Neck Pain (ED) Additional Instructions: Please follow-up to primary care physician Tuesday. Return for weakness, change or worsening symptoms, or any other concerns. Is patient prescribed a controlled substance at d/c from ED?: No Referrals: Ivan Bell DO [Primary Care Provider] - 1-2 days Time of Disposition: 18:30
== END 2018-02-03 19:18 | disposition home or self-care (01) ==
LOC: EC 17:16
DX: S16.1XXA Strain of muscle, fascia and tendon at neck level, initial encounter (principal); S46.811A Strain of other muscles, fascia and tendons at shoulder and upper arm level, right arm, initial encounter; I48.91 Unspecified atrial fibrillation; E11.40 Type 2 diabetes mellitus with diabetic neuropathy, unspecified; E78.5 Hyperlipidemia, unspecified; I10 Essential (primary) hypertension; Z86.73 Personal history of transient ischemic attack (TIA), and cerebral infarction without residual deficits; Z88.0 Allergy status to penicillin; Z88.5 Allergy status to narcotic agent; Z88.8 Allergy status to other drugs, medicaments and biological substances; Z79.01 Long term (current) use of anticoagulants; Z79.4 Long term (current) use of insulin; Z79.84 Long term (current) use of oral hypoglycemic drugs; Z79.899 Other long term (current) drug therapy; X58.XXXA Exposure to other specified factors, initial encounter
CPT/HCPCS: 99283; 96372 ×2; J2360; J1885

== ENCOUNTER 2018-03-06 10:47 | Emergency (ER) | payer MEDICARE ==
[2018-03-06] MEDS ORDERED: LABETALOL 5 MG/ML VIAL MDV IVP STA ×2 (11:02→13:51)
[2018-03-06] MEDS ORDERED: SODIUM CHLORIDE 0.9% 1,000 ML IV STA (11:02)
--- NOTE | 2018-03-06 11:23 | ED ---
General Adult HPI - General Chief complaint: Arrhythmia/Palpitations Stated complaint: palpitations, weakness Time Seen by Provider: 03/06/18 11:01 Source: patient, RN notes reviewed, old records reviewed Mode of arrival: wheelchair Limitations: no limitations - History of Present Illness Initial comments: This is a 67-year-old female the ER for evaluation today. Today she presents for evaluation regards lightheadedness room spinning and dizziness walking. No recent change in medications, no fever evaluation of her, no chest pain or abdominal pain. No other significant complaints. Patient states that she is laying still currently she is without significant complaints. - Related Data Home Medications Medication Instructions Recorded Confirmed Spironolactone [Aldactone] 100 mg PO BID 03/26/14 03/06/18 Apixaban [Eliquis] 5 mg PO BID 06/15/16 03/06/18 Insulin Aspart [NovoLOG] 20 unit SQ AC-TID 06/15/16 03/06/18 Insulin Detemir [Levemir] 31 unit SQ HS 06/15/16 03/06/18 Meclizine HCl 25 mg PO DAILY PRN 11/08/16 03/06/18 Pioglitazone HCl [Actos] 30 mg PO DAILY 12/20/16 03/06/18 Hydrocodone/Acetaminophen [[place] 1 tab PO Q6HR PRN 02/01/17 03/06/18 7.5-325] metFORMIN HCL [Glucophage] 500 mg PO BID 02/01/17 03/06/18 Atorvastatin [Lipitor] 10 mg PO HS 02/03/18 03/06/18 Diazepam [Valium] 5 mg PO BID PRN 02/03/18 03/06/18 Diltiazem HCl [Diltiazem ER] 180 mg PO DAILY 02/03/18 03/06/18 Hydrochlorothiazide [Hydrodiuril] 25 mg PO DAILY PRN 02/03/18 03/06/18 Insulin Aspart [NovoLOG] See Protocol SQ AC-TID 02/03/18 03/06/18 Cholecalciferol [Vitamin D3] 5,000 unit PO DAILY 03/06/18 03/06/18 Losartan Potassium 100 mg PO DAILY 03/06/18 03/06/18 Allergies Allergy/AdvReac Type Severity Reaction Status Date / Time celecoxib [From Celebrex] Allergy Unknown Verified 03/06/18 11:57 morphine Allergy Hallucinati Verified 03/06/18 11:57 ons Penicillins Allergy Rash/Hives Verified 03/06/18 11:57 Review of Systems ROS Statement: Those systems with pertinent positive or pertinent negative responses have been documented in the HPI. ROS Other: All systems not noted in ROS Statement are negative. Past Medical History Past Medical History: Atrial Fibrillation, Asthma, CVA/TIA, Diabetes Mellitus, Hyperlipidemia, Hypertension, Sleep Apnea/CPAP/BIPAP Additional Past Medical History / Comment(s): neuropathy History of Any Multi-Drug Resistant Organisms: None Reported Past Surgical History: Hysterectomy, Tonsillectomy Additional Past Surgical History / Comment(s): cerebral aneursym repair Past Anesthesia/Blood Transfusion Reactions: Motion Sickness Additional Past Anesthesia/Blood Transfusion Reaction / Comment(s): Also has problems with dizziness. Past Psychological History: No Psychological Hx Reported, Anxiety Smoking Status: Never smoker Past Alcohol Use History: None Reported Past Drug Use History: None Reported - Past Family History Mother Family Medical History: No Reported History Father Family Medical History: No Reported History Brother(s) Family Medical History: Cancer, Diabetes Mellitus General Exam Limitations: no limitations General appearance: alert, in no apparent distress Head exam: Present: atraumatic, normocephalic, normal inspection Eye exam: Present: normal appearance, PERRL, EOMI. Absent: scleral icterus, conjunctival injection, periorbital swelling ENT exam: Present: normal exam, mucous membranes moist Neck exam: Present: normal inspection. Absent: tenderness, meningismus, lymphadenopathy Respiratory exam: Present: normal lung sounds bilaterally. Absent: respiratory distress, wheezes, rales, rhonchi, stridor Cardiovascular Exam: Present: regular rate, normal rhythm, normal heart sounds. Absent: systolic murmur, diastolic murmur, rubs, gallop, clicks GI/Abdominal exam: Present: soft, normal bowel sounds. Absent: distended, tenderness, guarding, rebound, rigid Extremities exam: Present: normal inspection, full ROM, normal capillary refill. Absent: tenderness, pedal edema, joint swelling, calf tenderness Back exam: Present: normal inspection Neurological exam: Present: alert, oriented X3, CN II-XII intact Psychiatric exam: Present: normal affect, normal mood Skin exam: Present: warm, dry, intact, normal color. Absent: rash Course Vital Signs 03/06/18 03/06/18 03/06/18 10:51 11:26 11:44 Temperature 98.3 F Pulse Rate 78 70 69 Respiratory 20 18 18 Rate Blood Pressure 195/99 234/109 189/79 O2 Sat by Pulse 98 97 98 Oximetry - Reevaluation(s) Reevaluation #1: 03/06/18 13:39 Patient does not have any occasional dizziness here. No Difficulty with ambulation, blood pressures improved 03/06/18 13:40 Patient remains asymptomatic Reevaluation #2: 03/06/18 13:40 Patient is able to ambulate completely without difficulty EKG Findings - EKG Comments: EKG Findings:: EKG shows normal sinus rhythm rate of 83, IL 134, QRS 86, QTc 455 Medical Decision Making - Lab Data Result diagrams: 03/06/18 11:17 03/06/18 11:17 Lab Results 03/06/18 03/06/18 03/06/18 Range/Units 11:17 11:17 11:17 WBC 5.1 (3.8-10.6) k/uL RBC 4.38 (3.80-5.40) m/uL Hgb 12.6 (11.4-16.0) gm/dL Hct 38.7 (34.0-46.0) % MCV 88.4 (80.0-100.0) fL MCH 28.8 (25.0-35.0) pg MCHC 32.6 (31.0-37.0) g/dL RDW 14.9 (11.5-15.5) % Plt Count 280 (150-450) k/uL Neutrophils % 51 % Lymphocytes % 38 % Monocytes % 5 % Eosinophils % 3 % Basophils % 1 % Neutrophils # 2.6 (1.3-7.7) k/uL Lymphocytes # 2.0 (1.0-4.8) k/uL Monocytes # 0.2 (0-1.0) k/uL Eosinophils # 0.1 (0-0.7) k/uL Basophils # 0.0 (0-0.2) k/uL PT (9.0-12.0) sec INR (<1.2) APTT (22.0-30.0) sec Sodium 142 (137-145) mmol/L Potassium 4.1 (3.5-5.1) mmol/L Chloride 107 (98-107) mmol/L Carbon Dioxide 27 (22-30) mmol/L Anion Gap 8 mmol/L BUN 13 (7-17) mg/dL Creatinine 0.81 (0.52-1.04) mg/dL Est GFR (CKD-EPI)AfAm 89 (>60 ml/min/1.73 sqM) Est GFR (CKD-EPI)NonAf 77 (>60 ml/min/1.73 sqM) Glucose 153 H (74-99) mg/dL Calcium 9.5 (8.4-10.2) mg/dL Phosphorus 3.9 (2.5-4.5) mg/dL Magnesium 1.7 (1.6-2.3) mg/dL Total Bilirubin 0.5 (0.2-1.3) mg/dL AST 19 (14-36) U/L ALT 25 (9-52) U/L Alkaline Phosphatase 80 (38-126) U/L Total Creatine Kinase 74 (30-135) U/L CK-MB (CK-2) 0.3 (0.0-2.4) ng/mL CK-MB (CK-2) Rel Index 0.4 Troponin I <0.012 (0.000-0.034) ng/mL Total Protein 7.9 (6.3-8.2) g/dL Albumin 3.8 (3.5-5.0) g/dL TSH 1.510 (0.465-4.680) mIU/L 03/06/18 Range/Units 11:17 WBC (3.8-10.6) k/uL RBC (3.80-5.40) m/uL Hgb (11.4-16.0) gm/dL Hct (34.0-46.0) % MCV (80.0-100.0) fL MCH (25.0-35.0) pg MCHC (31.0-37.0) g/dL RDW (11.5-15.5) % Plt Count (150-450) k/uL Neutrophils % % Lymphocytes % % Monocytes % % Eosinophils % % Basophils % % Neutrophils # (1.3-7.7) k/uL Lymphocytes # (1.0-4.8) k/uL Monocytes # (0-1.0) k/uL Eosinophils # (0-0.7) k/uL Basophils # (0-0.2) k/uL PT 10.3 (9.0-12.0) sec INR 1.0 (<1.2) APTT 24.7 (22.0-30.0) sec Sodium (137-145) mmol/L Potassium (3.5-5.1) mmol/L Chloride (98-107) mmol/L Carbon Dioxide (22-30) mmol/L Anion Gap mmol/L BUN (7-17) mg/dL Creatinine (0.52-1.04) mg/dL Est GFR (CKD-EPI)AfAm (>60 ml/min/1.73 sqM) Est GFR (CKD-EPI)NonAf (>60 ml/min/1.73 sqM) Glucose (74-99) mg/dL Calcium (8.4-10.2) mg/dL Phosphorus (2.5-4.5) mg/dL Magnesium (1.6-2.3) mg/dL Total Bilirubin (0.2-1.3) mg/dL AST (14-36) U/L ALT (9-52) U/L Alkaline Phosphatase (38-126) U/L Total Creatine Kinase (30-135) U/L CK-MB (CK-2) (0.0-2.4) ng/mL CK-MB (CK-2) Rel Index Troponin I (0.000-0.034) ng/mL Total Protein (6.3-8.2) g/dL Albumin (3.5-5.0) g/dL TSH (0.465-4.680) mIU/L - Radiology Data Radiology results: report reviewed (CT brain CTA head and neck is negative, chest x-rays negative), image reviewed Disposition Clinical Impression: TIA (transient ischemic attack), Ataxia, Hypertensive urgency, Vertigo Disposition: HOME SELF-CARE Condition: Good Instructions: Hypertensive Crisis (ED) Is patient prescribed a controlled substance at d/c from ED?: No Referrals: Ivan Bell DO [Primary Care Provider] - 1-2 days
[2018-03-06 11:28] VITALS: RESP 18
[2018-03-06 11:40] LABS: Basophils % (A) 1 %; Eosinophils # (A) 0.1 k/uL (0-0.7); Eosinophils % (A) 3 %; HCT 38.7 % (34.0-46.0); HGB 12.6 gm/dL (11.4-16.0); Lymphocytes % (A) 38 %; MCH 28.8 pg (25.0-35.0); MCHC 32.6 g/dL (31.0-37.0); MCV 88.4 fL (80.0-100.0); Mean Platelet Volume 7.8; Monocytes # (A) 0.2 k/uL (0-1.0); Monocytes % (A) 5 %; Neutrophils # (A) 2.6 k/uL (1.3-7.7); Neutrophils % (A) 51 %; Platelet Count 280 k/uL (150-450); RBC 4.38 m/uL (3.80-5.40); RDW 14.9 % (11.5-15.5); WBC 5.1 k/uL (3.8-10.6)
[2018-03-06 11:47] LABS: Partial Thromboplastin Time 24.7 sec (22.0-30.0); Prothrombin Time 10.3 sec (9.0-12.0)
[2018-03-06 11:54] LABS: Albumin 3.8 g/dL (3.5-5.0); Calcium 9.5 mg/dL (8.4-10.2); Magnesium 1.7 mg/dL (1.6-2.3); Phosphorus 3.9 mg/dL (2.5-4.5); Potassium 4.1 mmol/L (3.5-5.1); Total Bilirubin 0.5 mg/dL (0.2-1.3); Total Protein 7.9 g/dL (6.3-8.2)
[2018-03-06 12:04] LABS: Creatine Kinase 74 U/L (30-135)
[2018-03-06 12:16] LABS: Creatine Kinase MB 0.3 ng/mL (0.0-2.4); Troponin I <0.012 ng/mL (0.000-0.034)
--- NOTE | 2018-03-06 13:03 | CT ---
EXAMINATION TYPE: CT brain wo con DATE OF EXAM: 03/06/2018 COMPARISON: NONE HISTORY: Dizziness today. History of cerebral aneurysm repair. CT DLP: 1019.5 mGycm Automated exposure control for dose reduction was used. FINDINGS: There has been a previous right frontal craniotomy. There are metallic clips in the temporal fossa. T here is an O malacia involving the anterior temporal lobe on the right. 6 Central structures are midline. There is no evidence of hydrocephalus. No acute focal lesion, mass effect or midline shift is seen. I do not see evidence of intracranial blood. There is a 9.6 mm retention cyst or polyp involving the posterior aspect of the left sphenoid sinus. The there is also a 12.9 mm retention cyst or polyp involving the posterior aspect of the right maxil willis antrum. IMPRESSION: 1. NO ACUTE INTRACRANIAL ABNORMALITY. 2. POSTSURGICAL CHANGE. 3. SINUS MUCOSAL DISEASE.
--- NOTE | 2018-03-06 13:10 | CT ---
EXAMINATION TYPE: CT angio head neck DATE OF EXAM: 03/06/2018 HISTORY: Dizziness today. History of cerebral aneurysm repair. COMPARISON: 12/08/2016 CT DLP: 352.3 mGycm. Automated Exposure Control for Dose Reduction was Utilized. TECHNIQUE: CTA scan of the neck is performed with IV Contrast, patient injected with 65 mL of Isovue 370, axial images are obtained, coronal and sagittal reformatted images are reviewed. Three-D recons tructed images are created on an independent workstation and reviewed. FINDINGS: There is focal ectasia of the left carotid bulb without focal outpouching. There is medial deviation of the cervical portions of the internal carotid arteries in a retropharyngeal location. Minimal nonh emodynamically significant atheromatous plaquing is seen of the left carotid bulb, otherwise no hemod ynamically significant stenosis is seen within the vasculature of the neck. 1 approximately 50% steno sis remains within the origin of the right internal carotid artery from surrounding noncalcific ather omatous plaquing, unchanged from the prior 12/08/2016. There is a conventional three-vessel branch pat tern of the aortic arch noted. The left vertebral artery is diminutive in its entirety but appears pa tent. Right vertebral artery is dominant. Surgical clip is again noted at the right anterior middle cranial fossa. No new intracranial aneurysm is identified. No vascular blush or extravasation of contrast is seen. Encephalomalacia is again see n within the anterior right temporal lobe. Mucosal retention cysts are noted within the posterior lef t sphenoid and right maxillary sinuses. Craniotomy defect is seen of the right frontotemporal region. Obscuration of the left fossa of Rosenmuller may relate to mucosal secretions. Moderate multilevel d egenerative disc disease is seen of the spine. Other: Minimal atelectasis is seen posteriorly within the right lung. IMPRESSION: No evidence of hemodynamically significant stenosis, aneurysm, or dissection within the head or neck. 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
[2018-03-06] MEDS ORDERED: ASPIRIN 325 MG TAB PO STA (13:35)
[2018-03-06] MEDS ORDERED: SODIUM CHLORIDE 0.9% 1,000 ML IV SCH (13:45)
[2018-03-06 13:53] LABS: Appearance,Urine Clear (Clear); Bilirubin,Urine Negative (Negative); Blood,Urine Negative (Negative); Color,Urine Light Yellow; Glucose,Urine (UA) Negative (Negative); Ketones,Urine Negative (Negative); Leukocyte Esterase,Urine Negative (Negative); Nitrite,Urine Negative (Negative); Protein,Urine Negative (Negative); Urobilinogen,Urine <2.0 mg/dL (<2.0)
[2018-03-06 14:40] VITALS: BP 164/79; PULSE 72; TEMP 98.2
[2018-03-06] MEDS ORDERED: ATORVASTATIN 80 MG TAB PO SCH (21:00)
[2018-03-07] MEDS ORDERED: ASPIRIN 325 MG TAB PO SCH (13:37)
== END 2018-03-06 14:52 | disposition home or self-care (01) ==
LOC: EC 10:47
DX: G45.9 Transient cerebral ischemic attack, unspecified (principal); R27.0 Ataxia, unspecified; I10 Essential (primary) hypertension; I48.91 Unspecified atrial fibrillation; J45.909 Unspecified asthma, uncomplicated; E78.5 Hyperlipidemia, unspecified; G47.30 Sleep apnea, unspecified; Z99.89 Dependence on other enabling machines and devices; E11.40 Type 2 diabetes mellitus with diabetic neuropathy, unspecified; F41.9 Anxiety disorder, unspecified; Z79.01 Long term (current) use of anticoagulants; Z79.4 Long term (current) use of insulin; Z79.899 Other long term (current) drug therapy; Z88.0 Allergy status to penicillin; Z88.5 Allergy status to narcotic agent; Z88.8 Allergy status to other drugs, medicaments and biological substances; Z53.8 Procedure and treatment not carried out for other reasons
CPT/HCPCS: 96361 ×4; 96376 ×2; 96374 ×2; 99285 ×2; 36415; 93005; 80053; 82550; 82553; 83735; 84100; 84443; 84484; 85025; 85610; 85730; 81003; 87086; 70496; 70450; 70498; Q9967

== ENCOUNTER 2018-04-28 19:47 | Emergency (ER) | payer MEDICARE ==
[2018-04-28] MEDS ORDERED: SODIUM CHLORIDE 0.9% 1,000 ML IV STA (20:44)
[2018-04-28] MEDS ORDERED: DIAZEPAM 5 MG/ML 2 ML INJ IVP STA (20:44)
[2018-04-28] MEDS ORDERED: MECLIZINE 12.5 MG TAB PO STA (20:44)
--- NOTE | 2018-04-28 20:49 | ED ---
General Adult HPI - General Chief complaint: Dizziness Stated complaint: dizziness Source: patient Mode of arrival: wheelchair Limitations: no limitations - History of Present Illness Initial comments: Dictation was produced using [employer] dictation software. please excuse any grammatical, word or spelling errors. Chief Complaint: 68-year-old -[place] female past medical history of A. fib, ataxia, hypertension, TIAs presents with dizziness. History of Present Illness: Patient states she's been having dizziness for approximately one week. She has a history of vertigo and she is on meclizine. Patient states that her symptoms have been progressive over the last 7 days. She states it was worse today. Denies any nausea or vomiting. Patient states that her dizziness is worse when she goes to the bathroom at night. Patient states she's been paying frequently. Patient denies any neuro deficits. The ROS documented in this emergency department record has been reviewed and confirmed by me. Those systems with pertinent positive or negative responses have been documented in the HPI. All other systems are other negative and/or noncontributory. - Related Data Home Medications Medication Instructions Recorded Confirmed Spironolactone [Aldactone] 100 mg PO BID 03/26/14 04/28/18 Apixaban [Eliquis] 5 mg PO BID 06/15/16 04/28/18 Insulin Aspart [NovoLOG] 10 unit SQ HS 06/15/16 04/28/18 Meclizine HCl 12.5 mg PO DAILY PRN 11/08/16 04/28/18 Pioglitazone HCl [Actos] 30 mg PO DAILY 12/20/16 04/28/18 Hydrocodone/Acetaminophen [Harmans 1 tab PO Q6HR PRN 02/01/17 04/28/18 7.5-325] metFORMIN HCL [Glucophage] 500 mg PO BID 02/01/17 04/28/18 Atorvastatin [Lipitor] 10 mg PO HS 02/03/18 04/28/18 Diazepam [Valium] 5 mg PO BID PRN 02/03/18 04/28/18 Diltiazem HCl [Diltiazem ER] 180 mg PO DAILY 02/03/18 04/28/18 Hydrochlorothiazide [Hydrodiuril] 25 mg PO DAILY PRN 02/03/18 04/28/18 Insulin Aspart [NovoLOG] See Protocol SQ HS 02/03/18 04/28/18 Cholecalciferol [Vitamin D3] 5,000 unit PO DAILY 03/06/18 04/28/18 Losartan Potassium 100 mg PO DAILY 03/06/18 04/28/18 Previous Rx's Medication Instructions Recorded Metoprolol Tartrate [Lopressor] 50 mg PO BID #60 tab 03/06/18 Allergies Allergy/AdvReac Type Severity Reaction Status Date / Time celecoxib [From Celebrex] Allergy Unknown Verified 04/28/18 21:08 morphine Allergy Hallucinati Verified 04/28/18 21:08 ons Penicillins Allergy Rash/Hives Verified 04/28/18 21:08 Review of Systems ROS Statement: Those systems with pertinent positive or pertinent negative responses have been documented in the HPI. ROS Other: All systems not noted in ROS Statement are negative. Past Medical History Past Medical History: Atrial Fibrillation, Asthma, CVA/TIA, Diabetes Mellitus, Hyperlipidemia, Hypertension, Sleep Apnea/CPAP/BIPAP Additional Past Medical History / Comment(s): neuropathy History of Any Multi-Drug Resistant Organisms: None Reported Past Surgical History: Hysterectomy, Tonsillectomy Additional Past Surgical History / Comment(s): cerebral aneursym repair Past Anesthesia/Blood Transfusion Reactions: Motion Sickness Additional Past Anesthesia/Blood Transfusion Reaction / Comment(s): Also has problems with dizziness. Past Psychological History: No Psychological Hx Reported, Anxiety Smoking Status: Never smoker Past Alcohol Use History: None Reported Past Drug Use History: None Reported - Past Family History Mother Family Medical History: No Reported History Father Family Medical History: No Reported History Brother(s) Family Medical History: Cancer, Diabetes Mellitus General Exam - General Exam Comments Initial Comments: PHYSICAL EXAM: General Impression: Alert and oriented x3, not in acute distress HEENT: Normocephalic atraumatic, extra-ocular movements intact, pupils equal and reactive to light bilaterally, mucous membranes moist. Cardiovascular: Heart regular rate and rhythm, S1&S2 audible, no murmurs, rubs or gallops Chest: Lungs clear to auscultation bilaterally, no rhonchi, no wheeze, no rales Abdomen: Bowel sounds present, abdomen soft, non-tender, non-distended, no organomegaly Musculoskeletal: Pulses present and equal in all extremities, no peripheral edema Motor: Power 5/5 bilaterally, no focal deficits noted Neurological: CN II-XII grossly intact, no focal motor or sensory deficits noted , mild left beating nystagmus, no test of skin, negative head impulse tests. Nystagmus is not direction changing Skin: Intact with no visualized rashes Psych: Normal affect and mood Limitations: no limitations Course Vital Signs 04/28/18 04/28/18 04/28/18 19:54 20:34 21:40 Temperature 98.3 F Pulse Rate 70 69 66 Respiratory 18 20 18 Rate Blood Pressure 208/109 181/86 203/99 O2 Sat by Pulse 100 99 98 Oximetry 04/28/18 22:47 Temperature Pulse Rate 59 L Respiratory 18 Rate Blood Pressure 195/90 O2 Sat by Pulse 100 Oximetry Medical Decision Making - Medical Decision Making ED course: 68-year-old female with chief complaint of dizziness. Vital signs upon arrival shows elevated blood pressure Repeat blood pressure shows 181/86. Patient had negative HEENT exam. Patient also has history of dizziness and vertigo. She does have Antivert prescription. Patient has negative neurologic examination.Laboratory evaluation obtained. CBC unremarkable. Coag panel is unremarkable. Metabolic panel is within acceptable limits. There is mild hyperglycemia 163. No anion gap. Urinalysis is negative. Patient treated with intravenous fluids, Antivert and Valium to treat dizziness. Patient was observed in emergency department. Patient reevaluated several hours later with improvement of symptoms. Patient tolerate by mouth and an Iris at baseline. Patient states she feels well to be discharge. Advised patient to follow up with primary care physician upon discharge. Patient understandable agreeable to discharge. Patient shifted, return to the emergency Department with any worsening symptoms. EKG Interpretation: A 12 lead EKG was obtained. It was interpreted by myself and attending physician. There is a P wave before every QRS complex. Rate is 55. Rhythm is sinus bradycardia,. Interval 166, QRS 92, QTC 397. QT is not prolonged. No ST segment depression or elevation. Overall, this EKG is unremarkable - Lab Data Result diagrams: 04/28/18 20:18 04/28/18 20:18 Lab Results 04/28/18 04/28/18 04/28/18 Range/Units 20:18 20:18 20:18 WBC 6.4 (3.8-10.6) k/uL RBC 4.62 (3.80-5.40) m/uL Hgb 13.8 (11.4-16.0) gm/dL Hct 43.1 (34.0-46.0) % MCV 93.5 D (80.0-100.0) fL MCH 30.0 (25.0-35.0) pg MCHC 32.1 (31.0-37.0) g/dL RDW 15.1 (11.5-15.5) % Plt Count 304 (150-450) k/uL Neutrophils % 53 % Lymphocytes % 38 % Monocytes % 4 % Eosinophils % 3 % Basophils % 1 % Neutrophils # 3.3 (1.3-7.7) k/uL Lymphocytes # 2.4 (1.0-4.8) k/uL Monocytes # 0.3 (0-1.0) k/uL Eosinophils # 0.2 (0-0.7) k/uL Basophils # 0.0 (0-0.2) k/uL PT 10.1 (9.0-12.0) sec INR 1.0 (<1.2) Sodium 145 (137-145) mmol/L Potassium 4.1 (3.5-5.1) mmol/L Chloride 103 (98-107) mmol/L Carbon Dioxide 32 H (22-30) mmol/L Anion Gap 10 mmol/L BUN 18 H (7-17) mg/dL Creatinine 1.35 H (0.52-1.04) mg/dL Est GFR (CKD-EPI)AfAm 47 (>60 ml/min/1.73 sqM) Est GFR (CKD-EPI)NonAf 41 (>60 ml/min/1.73 sqM) Glucose 163 H (74-99) mg/dL Calcium 10.3 H (8.4-10.2) mg/dL Total Bilirubin 0.3 (0.2-1.3) mg/dL AST 16 (14-36) U/L ALT 21 (9-52) U/L Alkaline Phosphatase 80 (38-126) U/L Total Protein 8.7 H (6.3-8.2) g/dL Albumin 4.1 (3.5-5.0) g/dL Urine Color Urine Appearance (Clear) Urine pH (5.0-8.0) Ur Specific [place] (1.001-1.035) Urine Protein (Negative) Urine Glucose (UA) (Negative) Urine Ketones (Negative) Urine Blood (Negative) Urine Nitrite (Negative) Urine Bilirubin (Negative) Urine Urobilinogen (<2.0) mg/dL Ur Leukocyte Esterase (Negative) Urine RBC (0-5) /hpf Urine WBC (0-5) /hpf Ur Squamous Epith Cells (0-4) /hpf Urine Bacteria (None) /hpf Urine Mucus (None) /hpf 04/28/18 Range/Units 21:08 WBC (3.8-10.6) k/uL RBC (3.80-5.40) m/uL Hgb (11.4-16.0) gm/dL Hct (34.0-46.0) % MCV (80.0-100.0) fL MCH (25.0-35.0) pg MCHC (31.0-37.0) g/dL RDW (11.5-15.5) % Plt Count (150-450) k/uL Neutrophils % % Lymphocytes % % Monocytes % % Eosinophils % % Basophils % % Neutrophils # (1.3-7.7) k/uL Lymphocytes # (1.0-4.8) k/uL Monocytes # (0-1.0) k/uL Eosinophils # (0-0.7) k/uL Basophils # (0-0.2) k/uL PT (9.0-12.0) sec INR (<1.2) Sodium (137-145) mmol/L Potassium (3.5-5.1) mmol/L Chloride (98-107) mmol/L Carbon Dioxide (22-30) mmol/L Anion Gap mmol/L BUN (7-17) mg/dL Creatinine (0.52-1.04) mg/dL Est GFR (CKD-EPI)AfAm (>60 ml/min/1.73 sqM) Est GFR (CKD-EPI)NonAf (>60 ml/min/1.73 sqM) Glucose (74-99) mg/dL Calcium (8.4-10.2) mg/dL Total Bilirubin (0.2-1.3) mg/dL AST (14-36) U/L ALT (9-52) U/L Alkaline Phosphatase (38-126) U/L Total Protein (6.3-8.2) g/dL Albumin (3.5-5.0) g/dL Urine Color Colorless Urine Appearance Clear (Clear) Urine pH 7.0 (5.0-8.0) Ur Specific [place] 1.010 (1.001-1.035) Urine Protein Negative (Negative) Urine Glucose (UA) Negative (Negative) Urine Ketones Negative (Negative) Urine Blood Negative (Negative) Urine Nitrite Negative (Negative) Urine Bilirubin Negative (Negative) Urine Urobilinogen <2.0 (<2.0) mg/dL Ur Leukocyte Esterase Trace H (Negative) Urine RBC 1 (0-5) /hpf Urine WBC 2 (0-5) /hpf Ur Squamous Epith Cells <1 (0-4) /hpf Urine Bacteria Rare H (None) /hpf Urine Mucus Rare H (None) /hpf Disposition Clinical Impression: Dizziness Disposition: HOME SELF-CARE Condition: Good Instructions: Dizziness (ED) Is patient prescribed a controlled substance at d/c from ED?: No Referrals: Ivan Bell DO [Primary Care Provider] - 1-2 days Time of Disposition: 22:51
[2018-04-28 20:55] LABS: Basophils % (A) 1 %; Eosinophils # (A) 0.2 k/uL (0-0.7); Eosinophils % (A) 3 %; HCT 43.1 % (34.0-46.0); HGB 13.8 gm/dL (11.4-16.0); Lymphocytes # (A) 2.4 k/uL (1.0-4.8); Lymphocytes % (A) 38 %; MCHC 32.1 g/dL (31.0-37.0); Mean Platelet Volume 7.8; Monocytes # (A) 0.3 k/uL (0-1.0); Monocytes % (A) 4 %; Neutrophils # (A) 3.3 k/uL (1.3-7.7); Neutrophils % (A) 53 %; Platelet Count 304 k/uL (150-450); RBC 4.62 m/uL (3.80-5.40); RDW 15.1 % (11.5-15.5); WBC 6.4 k/uL (3.8-10.6)
[2018-04-28 20:59] LABS: MCV 93.5 fL (80.0-100.0)
[2018-04-28 21:07] LABS: Prothrombin Time 10.1 sec (9.0-12.0)
--- NOTE | 2018-04-28 21:13 | XR ---
EXAMINATION TYPE: XR chest 2V DATE OF EXAM: 04/28/2018 COMPARISON: 08/15/2015 HISTORY: Dizziness TECHNIQUE: Frontal and lateral views of the chest are obtained. FINDINGS: There is no heart failure nor confluent pneumonic infiltrate. Costophrenic angles are minh r. Thoracic aorta is atheromatous. There are chest leads. IMPRESSION: No active cardiopulmonary disease. Heart is increased in size compared to old exam. Bord arlin cardiomegaly.
[2018-04-28 21:14] LABS: Albumin 4.1 g/dL (3.5-5.0); Calcium 10.3 mg/dL (8.4-10.2); Potassium 4.1 mmol/L (3.5-5.1); Total Bilirubin 0.3 mg/dL (0.2-1.3); Total Protein 8.7 g/dL (6.3-8.2)
[2018-04-28 21:35] LABS: Appearance,Urine Clear (Clear); Bacteria,Urine Rare /hpf; Bilirubin,Urine Negative (Negative); Blood,Urine Negative (Negative); Color,Urine Colorless; Glucose,Urine (UA) Negative (Negative); Ketones,Urine Negative (Negative); Leukocyte Esterase,Urine Trace (Negative); Mucus,Urine Rare /hpf; Nitrite,Urine Negative (Negative); Protein,Urine Negative (Negative); RBC,Urine 1 /hpf (0-5); Squamous Epithelial Cell,Urine <1 /hpf (0-4); Urobilinogen,Urine <2.0 mg/dL (<2.0); WBC,Urine 2 /hpf (0-5)
[2018-04-28 21:57] VITALS: RESP 18
[2018-04-28] MEDS ORDERED: METOPROLOL TARTRATE 50 MG TAB PO STA (22:06)
[2018-04-28 23:11] VITALS: BP 182/93; PULSE 64; TEMP 98.2
== END 2018-04-28 23:10 | disposition home or self-care (01) ==
LOC: EC 19:47
DX: R42 Dizziness and giddiness (principal); E11.65 Type 2 diabetes mellitus with hyperglycemia; E11.40 Type 2 diabetes mellitus with diabetic neuropathy, unspecified; I48.91 Unspecified atrial fibrillation; J45.909 Unspecified asthma, uncomplicated; E78.5 Hyperlipidemia, unspecified; I10 Essential (primary) hypertension; G47.30 Sleep apnea, unspecified; Z99.89 Dependence on other enabling machines and devices; Z86.73 Personal history of transient ischemic attack (TIA), and cerebral infarction without residual deficits; Z79.4 Long term (current) use of insulin; Z79.01 Long term (current) use of anticoagulants; Z79.899 Other long term (current) drug therapy; Z88.0 Allergy status to penicillin; Z88.5 Allergy status to narcotic agent; Z88.6 Allergy status to analgesic agent
CPT/HCPCS: 36415; 93005; 80053; 85025; 85610; 81001; 71046; 99284; 96374; 96361; J3360

== ENCOUNTER → 2018-07-27 | Outpatient (CLI) | payer MEDICARE ==
--- NOTE | 2018-07-27 12:39 | CT ---
EXAMINATION TYPE: CT brain wo con DATE OF EXAM: 07/27/2018 COMPARISON: 03/06/2018 HISTORY: Vertigo CT DLP: 1031 mGycm Automated exposure control for dose reduction was used. FINDINGS: There is encephalomalacia of the right temporal lobe with craniotomy defect and aneurysm clips. The r emaining delgado-white interface appears maintained. Old lacunar injury of the left caudate nucleus is n oted at its most cranial aspect on images 23 and 22. Prominent sulcus is seen on series 3 image 22 an d on sagittal series 6 image 30. [place] hole is seen within the left frontal bone. Mucosal retention cy st is present within the left sphenoid sinus. Mild mucosal thickening is seen within the ethmoid sinu ses. Mastoid air cells are well aerated. Mild atherosclerosis is seen of the intracranial vasculature . No acute intracranial hemorrhage or midline shift. Orbits are symmetric. IMPRESSION: 1. NO ACUTE INTRACRANIAL PROCESS. REDEMONSTRATION OF ENCEPHALOMALACIA IN THE TEMPORAL LOBE AND CRANIE CTOMY CHANGES WITH ANEURYSM CLIPS IN PLACE. 2. UNCHANGED LEFT OCCIPITAL SULCAL WIDENING AND LEFT CAUDATE HEAD OLD LACUNAR INJURY. 3. MILD PARANASAL SINUS DISEASE.
== END ==
LOC: RADCTMAIN 10:20
PROVIDERS: ATTEND Otolaryngology
DX: G93.89 Other specified disorders of brain (principal); I67.1 Cerebral aneurysm, nonruptured
CPT/HCPCS: 36415; 70450; 82565; 84520

== ENCOUNTER → 2018-08-30 | Outpatient (CLI) | payer MEDICARE | LOC: NEUROMAIN 06:45 | PROVIDERS: ATTEND Otolaryngology | DX: H81.43 Vertigo of central origin, bilateral (principal); R42 Dizziness and giddiness | CPT/HCPCS: 92537; 92540 ==

== ENCOUNTER → 2018-11-02 | Outpatient (CLI) | payer MEDICARE ==
--- NOTE | 2018-11-03 10:11 | CT ---
EXAMINATION TYPE: CT angio head neck DATE OF EXAM: 11/02/2018 HISTORY: Dizziness COMPARISON: 03/06/2018 CT DLP: 338.2 mGycm. Automated Exposure Control for Dose Reduction was Utilized. TECHNIQUE: CTA scan of the neck is performed with IV Contrast, patient injected with 65 mL of Isovue 370, axial images are obtained, coronal and sagittal reformatted images are reviewed. Three-D recons tructed images are created on an independent workstation and reviewed. FINDINGS: Carotid/Vascular Structures: There is a conventional three-vessel branch pattern of the aortic arch. The common carotid arteries are patent without hemodynamically significant stenosis or there is very minimal noncalcific atheromatous plaquing of the common carotid arteries. Within the left carotid bulb there is minimal nonhemodynamically significant stenosis from calcific lacking. Within the right carotid bulb there is no hemodynamically significant stenosis with only min imal calcific plaquing. There is a medial course of the bilateral internal carotid arteries. The left vertebral artery is extremely diminutive right vertebral artery is patent. Aneurysm coil cli p and craniotomy defect is seen within a distal branch of the right middle cerebral artery. Other: Minimal emphysematous changes are seen at the lung apices that are centrilobular. 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 Moderate multilevel degenerative shaikh e of the cervical spine is noted. Polypoid mucosal thickening is seen within the sphenoid and right m axillary sinus. Remaining paranasal sinuses and mastoid air cells are well aerated. IMPRESSION: 1. Postsurgical change of a distal branch of the right middle cerebral artery from prior aneurysm coi ling. 2. No hemodynamically significant stenosis of the carotid vertebral system with minimal atheroscleros is of the carotid bulbs bilaterally. 3. Mild paranasal sinus disease. 3. Moderate multilevel degenerative disc disease of the cervical spine.
== END ==
LOC: RADCTMAIN 13:45
PROVIDERS: ATTEND Psychiatry & Neurology Neurology
DX: I67.1 Cerebral aneurysm, nonruptured (principal); Z88.5 Allergy status to narcotic agent; Z88.0 Allergy status to penicillin; Z88.6 Allergy status to analgesic agent
CPT/HCPCS: 82565; 84520; 70496; 70498; 36415; Q9967

== ENCOUNTER → 2018-11-29 | Outpatient (CLI) | payer MEDICARE ==
--- NOTE | 2018-11-29 15:40 | BD ---
EXAMINATION TYPE: Axial Bone Density DATE OF EXAM: 11/29/2018 COMPARISON: NONE CLINICAL HISTORY: Postmenopausal female. Osteoporosis screening. Height: 62 Weight: 204.6 FRAX RISK QUESTIONS: Alcohol (3 or more units per day): NO Family History (Parent hip fracture): no Glucocorticoids (More than 3mos): no (Ex: prednisone, prednisolone, methylprednisolone, dexamethasone, and hydrocortisone). History of Fracture in Adulthood: no Secondary Osteoporosis: 1. Type 1 Diabetes: no 2. Hyperthyroidism: no 3. Menopause before 45: yes 4. Malnutrition: no 5. Chronic liver disease: no Rheumatoid Arthritis: no Current Tobacco Use: no RISK FACTORS HISTORY OF: Family History of Osteoporosis: no Active: yes Diet low in dairy products/other sources of calcium: yes Postmenopausal woman: age 45 Lost more than 2 inches in height since high school: no MEDICATIONS: type 2 diabetic meds, blood pressure meds, cholesterol meds, heart meds Additional History: EXAM MEASUREMENTS: Bone mineral densitometry was performed using the S B E System. Bone mineral density as measured about the Lumbar spine is: ----- L1-L4(G/cm2): 1.188 T Score Values are as follows: ----- L2: 0.1 ----- L3: 0.3 ----- L4: -0.7 ----- L1-L4: 0.1 Bone mineral density : baseline Bone mineral density about the R hip (g/cm2): 1.013 Bone mineral density about the L hip (g/cm2): 0.994 T Score values are as follows: -----R Neck: -0.2 -----L Neck: -0.3 -----R Total: 0.3 -----L Total: 0.8 Bone mineral density : baseline IMPRESSION: Normal (Values between +1 and -1 indicate normal bone mass). Consider repeating this study in 5 year s or sooner if there is some new clinical indication. NOTE: T-SCORE=SD OF THE YOUNG ADULT MEAN.
--- NOTE | 2018-11-30 11:21 | MM ---
Reason for exam: screening (asymptomatic). Last mammogram was performed 9 years and 1 month ago. History: Patient is postmenopausal. Family history of breast cancer in sister. Benign stereotactic core biopsy of the left breast, December 18, 2001. Core biopsy of the left breast. Physical Findings: A clinical breast exam by your physician is recommended on an annual basis and results should be correlated with mammographic findings. MG 3D Screening Mammo W/Cad Bilateral CC and MLO view(s) were taken. Prior study comparison: November 13, 2009, bilateral diagnostic digital mammog. October 06, 2007, bilateral screening mammogram w/CAD. There are scattered fibroglandular densities. Benign appearing bilateral calcifications. Previous mammotome biopsy in the left breast. There is chronic nodularity bilaterally. No significant changes when compared with prior studies. ASSESSMENT: Benign, BI-RAD 2 RECOMMENDATION: Routine screening mammogram of both breasts in 1 year.
== END | disposition home or self-care (01) ==
LOC: RADMAMWWP 10:02
PROVIDERS: ATTEND Family Medicine
DX: Z12.31 Encounter for screening mammogram for malignant neoplasm of breast (principal); M89.9 Disorder of bone, unspecified
CPT/HCPCS: 77063; 77067; 77080

== ENCOUNTER → 2019-01-04 | Outpatient (CLI) | payer MEDICARE ==
--- NOTE | 2019-01-04 15:34 | SFUN ---
SLEEP CENTER FOLLOW UP NOTE DATE OF SERVICE: 01/04/2019 A 68-year-old lady has been followed in the Sleep Center for treatment of obstructive sleep apnea-hypopnea syndrome. Patient successfully continues to use her CPAP equipment every night for the whole night. Recently had some episodes of awakenings in the morning with headaches. She thinks that possibly she has some problem with the machine. [place] Sleepiness Scale today is increased to 16. I checked her CPAP unit, CPAP pressure is 11 cm of water. Usage is 100% of the time, 27/30 nights for the last month, more than 4 hours and average usage is 6.5 hours, which is normal range, leak is 14 L/minute, which is in normal acceptable range for the nasal mask. Apnea-hypopnea index only 1.3, which is totally normal for the last month. For the last 6 months, usage 178/180 nights. Leak is 17 L/minute. Apnea-hypopnea index 1.7, which is also normal. MEDICATIONS: Eliquis, Humalog, Levemir, spironolactone, [place], Antivert, Lipitor, diazepam, metformin, losartan, metoprolol. PHYSICAL EXAM: Lady without distress. BP 175/90, HR 76, RR 16, height 5 foot, 2 inches, weight 212.2 pounds, body mass index 38.7, temperature 97.6, oxygen saturation at room air 98%. OROPHARYNX: Low position of soft palate. Mallampati 4. ABDOMEN: Slightly obese. Neck Supple, no JVD. Thyroid is not palpable. LUNGS Clear to percussion and to auscultation. Good air exchange. No wheezing or rhonchi. HEART S1, S2 regular. No murmurs, gallops, or rubs. EXTREMITIES No clubbing or cyanosis. RACING MANAGER Awake, alert, and oriented X3. Cranial nerves 2 to 7 intact. There is no fasciculation or atrophy. noted. No focal deficits observed. IMPRESSION: 1. Obstructive sleep apnea-hypopnea syndrome. Patient demonstrated great compliance with treatment, benefitting from treatment. 2. Obesity, patient increased her weight of 4 pounds comparing with the visit last year. 3. Hypertension. 4. Diabetes mellitus. 5. History of atrial fibrillation. 6. Diabetes mellitus. 7. Hyperlipidemia. 8. Anxiety. PLAN: 1. Patient will continue to use her CPAP equipment every night for the whole night. 2. I will maintain all necessary prescriptions for nasal mask, tube, filters and chamber for heated humidity. 3. Sleep hygiene with regular time in bed for at least 8 hours. 4. Losing weight. 5. No driving if feeling sleepiness. 6. I discussed with the patient adjustments of humidifier. Thank you very much for allowing me to participate in the management of your patient. Sincerely, Jeff Landon MD, PhD, FAASM Diplomat of [place] [employer] [place] [employer] [facility] [place] MMODL / IJN: [id number] /
== END | disposition home or self-care (01) ==
LOC: SLEEP 13:55
PROVIDERS: ATTEND Internal Medicine
DX: G47.33 Obstructive sleep apnea (adult) (pediatric) (principal); R51 Headache; E66.9 Obesity, unspecified; I10 Essential (primary) hypertension; E11.9 Type 2 diabetes mellitus without complications; I48.91 Unspecified atrial fibrillation; E78.5 Hyperlipidemia, unspecified; F41.9 Anxiety disorder, unspecified; Z99.89 Dependence on other enabling machines and devices; Z79.02 Long term (current) use of antithrombotics/antiplatelets; Z68.38 Body mass index [BMI] 38.0-38.9, adult; Z79.4 Long term (current) use of insulin; Z79.891 Long term (current) use of opiate analgesic; Z79.899 Other long term (current) drug therapy

== ENCOUNTER 2019-02-14 12:33 | Observation (INO) | payer MEDICARE ==
[2019-02-14] MEDS ORDERED: hydrALAZINE HCL 20 MG/ML 1 ML VIAL IVP STA (13:15)
[2019-02-14] MEDS ORDERED: METOPROLOL TARTRATE 50 MG TAB PO STA (13:22)
[2019-02-14 14:12] LABS: Basophils # (A) 0.1 k/uL (0-0.2); Basophils % (A) 1 %; Eosinophils # (A) 0.2 k/uL (0-0.7); Eosinophils % (A) 3 %; Lymphocytes # (A) 1.9 k/uL (1.0-4.8); Lymphocytes % (A) 35 %; MCH 29.5 pg (25.0-35.0); MCHC 32.4 g/dL (31.0-37.0); MCV 90.9 fL (80.0-100.0); Monocytes # (A) 0.2 k/uL (0-1.0); Monocytes % (A) 4 %; Neutrophils % (A) 54 %; Platelet Count 228 k/uL (150-450); WBC 5.6 k/uL (3.8-10.6)
[2019-02-14 14:17] LABS: Appearance,Urine Clear (Clear); Bilirubin,Urine Negative (Negative); Blood,Urine Negative (Negative); Color,Urine Light Yellow; Glucose,Urine (UA) 3+ (Negative); Hyaline Casts,Urine 1 /lpf (0-2); INR 0.9 (<1.2); Ketones,Urine Negative (Negative); Leukocyte Esterase,Urine Trace (Negative); Mucus,Urine Rare /hpf; Nitrite,Urine Negative (Negative); Partial Thromboplastin Time 22.2 sec (22.0-30.0); Protein,Urine Trace (Negative); Prothrombin Time 9.9 sec (9.0-12.0); RBC,Urine <1 /hpf (0-5); Specific Gravity,Urine 1.011 (1.001-1.035); Squamous Epithelial Cell,Urine <1 /hpf (0-4); Urobilinogen,Urine <2.0 mg/dL (<2.0); WBC,Urine 2 /hpf (0-5)
[2019-02-14 14:23] LABS: ALT 21 U/L (9-52); AST 17 U/L (14-36); African American GFR (CKD) >90 (>60 ml/min/1.73 sqM); Albumin 3.5 g/dL (3.5-5.0); Alkaline Phosphatase 86 U/L (38-126); Anion Gap 7 mmol/L; Blood Urea Nitrogen 11 mg/dL (7-17); Calcium 8.9 mg/dL (8.4-10.2); Carbon Dioxide 32 mmol/L (22-30); Chloride 102 mmol/L (98-107); Glucose 301 mg/dL (74-99); Potassium 3.4 mmol/L (3.5-5.1); Sodium 141 mmol/L (137-145); Total Bilirubin 0.7 mg/dL (0.2-1.3); Total Protein 7.1 g/dL (6.3-8.2)
--- NOTE | 2019-02-14 14:59 | XR ---
EXAMINATION TYPE: XR chest 2V DATE OF EXAM: 02/14/2019 COMPARISON: 04/28/2018 HISTORY: 68-year-old female with pain TECHNIQUE: PA and lateral views FINDINGS: Heart upper limits of normal in size. Mild elongation thoracic aorta. Mild interstitial prominence as a chronic appearance. No consolidation or pleural effusion. IMPRESSION: Borderline heart size. Chronic appearing changes. No acute process seen.
[2019-02-14] MEDS ORDERED: SODIUM CHLORIDE 0.9% 1,000 ML IV ONE (15:07)
--- NOTE | 2019-02-14 15:39 | ED ---
Recheck HPI - General Chief Complaint: Recheck/Abnormal Lab/Rx Stated Complaint: elevated BP Time Seen by Provider: 02/14/19 13:14 Source: patient Mode of arrival: ambulatory Limitations: no limitations - History of Present Illness Initial Comments: 68yo female with history of vertigo presenting today for chief complaint of elevated blood pressure. Patient states her blood pressures often uncontrolled. Patient states she did not take her blood pressure medications this morning before presenting to her primary care provider for routine appointment. Patient states her blood pressure is significant elevated at the appointment. She states she was then sent to the emergency department for evaluation of hypertensive urgency. Patient states she has her baseline dizziness. Patient denies headache nausea vomiting head injury. She has no chest pain shortness breath legs swelling abdominal pain nausea vomiting or any other associated symptoms. She states she is very anxious about her blood pressure. - Related Data Home Medications Medication Instructions Recorded Confirmed Spironolactone [Aldactone] 100 mg PO BID 03/26/14 02/14/19 Apixaban [Eliquis] 5 mg PO BID 06/15/16 02/14/19 Meclizine HCl 25 mg PO DAILY PRN 11/08/16 02/14/19 Pioglitazone HCl [Actos] 30 mg PO DAILY 12/20/16 02/14/19 Hydrocodone/Acetaminophen [[place] 1 tab PO Q6HR PRN 02/01/17 02/14/19 7.5-325] metFORMIN HCL [Glucophage] 500 mg PO BID 02/01/17 02/14/19 Atorvastatin [Lipitor] 10 mg PO HS 02/03/18 02/14/19 Diazepam [Valium] 5 mg PO BID PRN 02/03/18 02/14/19 Diltiazem HCl [Diltiazem ER] 180 mg PO DAILY 02/03/18 02/14/19 Cholecalciferol [Vitamin D3] 5,000 unit PO DAILY 03/06/18 02/14/19 Losartan Potassium 100 mg PO DAILY 03/06/18 02/14/19 Insulin Regular, Human [NovoLIN R] 15 units SQ AC-TID 02/14/19 02/14/19 Insulin Regular, Human [NovoLIN R] See Protocol SQ AC-TID 02/14/19 02/14/19 Previous Rx's Medication Instructions Recorded Metoprolol Tartrate [Lopressor] 50 mg PO BID #60 tab 03/06/18 Allergies Allergy/AdvReac Type Severity Reaction Status Date / Time celecoxib [From Celebrex] Allergy Unknown Verified 02/14/19 12:54 morphine Allergy Hallucinati Verified 02/14/19 12:54 ons Penicillins Allergy Rash/Hives Verified 02/14/19 12:54 Review of Systems ROS Statement: Those systems with pertinent positive or pertinent negative responses have been documented in the HPI. ROS Other: All systems not noted in ROS Statement are negative. Past Medical History Past Medical History: Atrial Fibrillation, Asthma, CVA/TIA, Diabetes Mellitus, Hyperlipidemia, Hypertension, Sleep Apnea/CPAP/BIPAP Additional Past Medical History / Comment(s): neuropathy History of Any Multi-Drug Resistant Organisms: None Reported Past Surgical History: Hysterectomy, Tonsillectomy Additional Past Surgical History / Comment(s): cerebral aneursym repair Past Anesthesia/Blood Transfusion Reactions: Motion Sickness Additional Past Anesthesia/Blood Transfusion Reaction / Comment(s): Also has problems with dizziness. Past Psychological History: No Psychological Hx Reported, Anxiety Smoking Status: Never smoker Past Alcohol Use History: None Reported Past Drug Use History: None Reported - Past Family History Mother Family Medical History: No Reported History Father Family Medical History: No Reported History Brother(s) Family Medical History: Cancer, Diabetes Mellitus General Exam - General Exam Comments Initial Comments: General: The patient is awake and alert, in no distress, and does not appear acutely ill. Eye: +3 mm pupils are equal, round and reactive to light, extra-ocular movements are intact. No nystagmus. There is normal conjunctiva bilaterally. No signs of icterus. Ears, nose, mouth and throat: There are moist mucous membranes and no oral lesions. Neck: The neck is supple, there is no tenderness or JVD. Cardiovascular: There is a regular rate and rhythm. No murmur, rub or gallop is appreciated. Respiratory: Lungs are clear to auscultation, respirations are non-labored, breath sounds are equal. No wheezes, stridor, rales, or rhonchi. Gastrointestinal: Soft, non-distended, non-tender abdomen without masses or organomegaly noted. There is no rebound or guarding present. No CVA tenderness. Bowel sounds are unremarkable. No pulsative masses. Musculoskeletal: Normal ROM, no tenderness. Strength 5/5. Sensation intact. Pulses equal bilaterally 2+. Neurological: A&O x 3. CN II-XII intact, There are no obvious motor or sensory deficits. Coordination appears grossly intact. Speech is normal. [id number] within coordinated. Heel to fierro smooth and coordinated. No pronator drift. Skin: Skin is warm and dry and no rashes or lesions are noted. Psychiatric: Cooperative, appropriate mood & affect, normal judgment. Limitations: no limitations Course Vital Signs 02/14/19 02/14/19 12:34 15:56 Temperature 98.2 F Pulse Rate 85 77 Respiratory 18 18 Rate Blood Pressure 219/122 167/75 O2 Sat by Pulse 99 97 Oximetry Medical Decision Making - Medical Decision Making 68yo female presenting for hypertensive urgency. Patient has no complaints aside from baseline dizziness. Patient is no focal neurological deficits. Patient denies chest pain. Patient has no signs of end organ damage. Chest x- ray revealed no pleural effusions. EKG no acute findings. Troponin negative. Kidney function at baseline. Patient states she does not feel comfortable at home as blood pressure fluctuates in the emergency department. She states she "just feels unwell" --unable to localize symptoms and is anxious going home with elevated BP. Pt will be admitted for BP management/hypertensive urgency. Patient is agreeable with admission. Dr. tolentino accepted admission. I did discuss the case with Dr. Glaser who is agreeable with care plan and discharge at this time. Pt was given 20mg hydralazine, in ER, home dose metoprolol.. Patient given tylenol patient states she usually takes norco for chronic pain. - Lab Data Result diagrams: 02/14/19 13:53 02/14/19 13:53 Lab Results 02/14/19 02/14/19 02/14/19 Range/Units 13:53 13:53 13:53 WBC 5.6 (3.8-10.6) k/uL RBC 4.40 (3.80-5.40) m/uL Hgb 13.0 (11.4-16.0) gm/dL Hct 40.0 (34.0-46.0) % MCV 90.9 (80.0-100.0) fL MCH 29.5 (25.0-35.0) pg MCHC 32.4 (31.0-37.0) g/dL RDW 15.0 (11.5-15.5) % Plt Count 228 (150-450) k/uL Neutrophils % 54 % Lymphocytes % 35 % Monocytes % 4 % Eosinophils % 3 % Basophils % 1 % Neutrophils # 3.0 (1.3-7.7) k/uL Lymphocytes # 1.9 (1.0-4.8) k/uL Monocytes # 0.2 (0-1.0) k/uL Eosinophils # 0.2 (0-0.7) k/uL Basophils # 0.1 (0-0.2) k/uL PT 9.9 (9.0-12.0) sec INR 0.9 (<1.2) APTT 22.2 (22.0-30.0) sec Sodium 141 (137-145) mmol/L Potassium 3.4 L (3.5-5.1) mmol/L Chloride 102 (98-107) mmol/L Carbon Dioxide 32 H (22-30) mmol/L Anion Gap 7 mmol/L BUN 11 (7-17) mg/dL Creatinine 0.76 (0.52-1.04) mg/dL Est GFR (CKD-EPI)AfAm >90 (>60 ml/min/1.73 sqM) Est GFR (CKD-EPI)NonAf 83 (>60 ml/min/1.73 sqM) Glucose 301 H (74-99) mg/dL Calcium 8.9 (8.4-10.2) mg/dL Total Bilirubin 0.7 (0.2-1.3) mg/dL AST 17 (14-36) U/L ALT 21 (9-52) U/L Alkaline Phosphatase 86 (38-126) U/L Troponin I (0.000-0.034) ng/mL Total Protein 7.1 (6.3-8.2) g/dL Albumin 3.5 (3.5-5.0) g/dL Urine Color Urine Appearance (Clear) Urine pH (5.0-8.0) Ur Specific [place] (1.001-1.035) Urine Protein (Negative) Urine Glucose (UA) (Negative) Urine Ketones (Negative) Urine Blood (Negative) Urine Nitrite (Negative) Urine Bilirubin (Negative) Urine Urobilinogen (<2.0) mg/dL Ur Leukocyte Esterase (Negative) Urine RBC (0-5) /hpf Urine WBC (0-5) /hpf Ur Squamous Epith Cells (0-4) /hpf Hyaline Casts (0-2) /lpf Urine Mucus (None) /hpf 02/14/19 02/14/19 Range/Units 13:53 13:53 WBC (3.8-10.6) k/uL RBC (3.80-5.40) m/uL Hgb (11.4-16.0) gm/dL Hct (34.0-46.0) % MCV (80.0-100.0) fL MCH (25.0-35.0) pg MCHC (31.0-37.0) g/dL RDW (11.5-15.5) % Plt Count (150-450) k/uL Neutrophils % % Lymphocytes % % Monocytes % % Eosinophils % % Basophils % % Neutrophils # (1.3-7.7) k/uL Lymphocytes # (1.0-4.8) k/uL Monocytes # (0-1.0) k/uL Eosinophils # (0-0.7) k/uL Basophils # (0-0.2) k/uL PT (9.0-12.0) sec INR (<1.2) APTT (22.0-30.0) sec Sodium (137-145) mmol/L Potassium (3.5-5.1) mmol/L Chloride (98-107) mmol/L Carbon Dioxide (22-30) mmol/L Anion Gap mmol/L BUN (7-17) mg/dL Creatinine (0.52-1.04) mg/dL Est GFR (CKD-EPI)AfAm (>60 ml/min/1.73 sqM) Est GFR (CKD-EPI)NonAf (>60 ml/min/1.73 sqM) Glucose (74-99) mg/dL Calcium (8.4-10.2) mg/dL Total Bilirubin (0.2-1.3) mg/dL AST (14-36) U/L ALT (9-52) U/L Alkaline Phosphatase (38-126) U/L Troponin I 0.017 (0.000-0.034) ng/mL Total Protein (6.3-8.2) g/dL Albumin (3.5-5.0) g/dL Urine Color Light Yellow Urine Appearance Clear (Clear) Urine pH 7.0 (5.0-8.0) Ur Specific [place] 1.011 (1.001-1.035) Urine Protein Trace H (Negative) Urine Glucose (UA) 3+ H (Negative) Urine Ketones Negative (Negative) Urine Blood Negative (Negative) Urine Nitrite Negative (Negative) Urine Bilirubin Negative (Negative) Urine Urobilinogen <2.0 (<2.0) mg/dL Ur Leukocyte Esterase Trace H (Negative) Urine RBC <1 (0-5) /hpf Urine WBC 2 (0-5) /hpf Ur Squamous Epith Cells <1 (0-4) /hpf Hyaline Casts 1 (0-2) /lpf Urine Mucus Rare H (None) /hpf Disposition Clinical Impression: Hypertensive urgency, Dizzinesses Disposition: ADMITTED IP TO THIS [facility] Condition: Stable Is patient prescribed a controlled substance at d/c from ED?: No Referrals: Ivan Bell DO [Primary Care Provider] - 1-2 days Time of Disposition: 17:39 Decision to Admit Reason: Admit from EC Decision Date: 02/14/19 Decision Time: 17:40
[2019-02-14] MEDS ORDERED: ALPRAZolam 0.5 MG TAB PO STA (16:18)
[2019-02-14] MEDS ORDERED: ACETAMINOPHEN TAB 325 MG TAB PO STA (17:09)
[2019-02-14] MEDS ORDERED: ALPRAZolam 0.25 MG TAB PO PRN (17:40)
[2019-02-14] MEDS ORDERED: NALOXONE 0.4 MG/ML 1 ML VIAL IV PRN (17:40)
[2019-02-14] MEDS ORDERED: DIAZEPAM 5 MG TAB PO PRN (17:41)
[2019-02-14] MEDS ORDERED: MECLIZINE 25 MG TAB PO PRN (17:41)
[2019-02-14] MEDS ORDERED: SODIUM CHLORIDE 0.9% 1,000 ML IV SCH (17:45)
[2019-02-14 20:19] LABS: Glucose,Whole Blood 369 mg/dL (75-99)
[2019-02-14] MEDS ORDERED: ATORVASTATIN 10 MG TAB PO SCH (21:00)
[2019-02-14] MEDS ORDERED: METOPROLOL TARTRATE 50 MG TAB PO SCH (21:02)
[2019-02-14] MEDS ORDERED: HYDROcodone/APAP 7.5-325MG 1 EACH TAB PO PRN (21:50)
[2019-02-14] MEDS: metFORMIN 500 MG TAB PO SCH (21:52)
[2019-02-14] MEDS: APIXABAN 5 MG TAB PO SCH (21:52)
[2019-02-14] MEDS: SPIRONOLACTONE 25 MG TAB PO SCH (22:01)
[2019-02-14] MEDS: DILTIAZEM CD 180 MG CAP.ER.24H PO SCH (22:02)
[2019-02-14] MEDS: ENOXAPARIN 40 MG/0.4 ML SYRINGE SQ SCH (22:04)
--- NOTE | 2019-02-14 22:06 | P.HPIM ---
History of Present Illness H&P Date: 02/14/19 Chief Complaint: Not feeling well History of presenting complaint: This is a pleasant 68 year patient who follows with Dr. Bell. Chronic stable medical conditions include diabetes, hyperlipidemia, obstructive sleep apnea uses a CPAP machine, diabetic peripheral neuropathy, anxiety. Patient with a lot of family stress because of her children. Also recently she was treated with antibiotics and steroids by PCP for bronchitis. She finished the medication about 5 days ago. She has been having vague symptoms including not feeling well some dizziness occasional headache. No change in vision. No chest pain as such. Just feels tired and rundown. Patient does sleep well and does use a CPAP machine at home. She did take her blood pressure in the morning, blood pressure it was pretty high. She presented to the ER with a blood pressure initially recorded as 232 systolic. Admitted for the same. Review of systems: GEN.: Tired EYES: None HEENT: None NECK: None RESPIRATORY: None CARDIOVASCULAR: None GASTROINTESTINAL: None GENITOURINARY: None MUSCULOSKELETAL: None LYMPHATICS: None HEMATOLOGICAL: None PSYCHIATRY: Anxious and under a lot of stress NEUROLOGICAL: Occasional dizziness, no focal Past medical history: To include-atrial fibrillation, diabetes, hypertension, hyperlipidemia, obstructive sleep apnea, diabetic peripheral neuropathy, TIA 2, anxiety. Social history: Lives alone. Does not smoke or drink alcohol. Family history: Reviewed, noncontributory to presentation Physical examination: VITAL SIGNS: 98.2, 85, 18, 219/122, repeat 167/75, 99% room air GENERAL: Well-built, BMI 37.5, laying in bed, but anxious. EYES: Pupils equal. Conjunctiva normal. HEENT: External appearance of nose and ears normal, oral cavity grossly normal. NECK: JVD not raised; masses not palpable. HEART: First and second heart sounds are normal; no edema. LUNGS: Respiratory rate normal; clear to auscultation. ABDOMEN: Soft, nontender, liver spleen not palpable, no masses palpable. LYMPHATICS: No lymph nodes palpable in the axilla and neck. PSYCH: [Alert and oriented x3; mood and affect anxious l. NEUROLOGICAL: Cranial nerves grossly intact; no facial asymmetry, power and sensation grossly intact. Investigations: Reviewed in the clinical context White count 5.6, hemoglobin 13, platelets is 228, potassium 3.4, BUN 11, creatinine 0.76, Troponin 0.017 EKG tracing personally reviewed by me shows flipped T waves in leads fever or V4 to V6 and some subtle changes in inferior leads Assessment: -Accelerated hypertension, that could also be precipitated by social stressors going on at home. -Abnormal EKG we will do an EKG echocardiogram to check for wall motion abnormality -Paroxysmal atrial fibrillation currently in sinus rhythm on Eliquis -Diabetes mellitus type 2 on oral hypoglycemic -Hyperlipidemia -Obstructive sleep apnea uses CPAP machine -Anxiety disorder not otherwise specified -Social stressors -Obesity BMI 37.5 Plan: Patient's home medications are resumed. We'll see how she does. We'll get a 2- D echocardiogram. We'll get a cardiology opinion based on the EKG changes. Patient to use a CPAP. Also advised to lose weight. Past Medical History Past Medical History: Atrial Fibrillation, Asthma, CVA/TIA, Diabetes Mellitus, Hyperlipidemia, Hypertension, Sleep Apnea/CPAP/BIPAP Additional Past Medical History / Comment(s): neuropathy, 2 TIAs, AZUL with CPAP History of Any Multi-Drug Resistant Organisms: None Reported Past Surgical History: Hysterectomy, Tonsillectomy Additional Past Surgical History / Comment(s): cerebral aneursym repair- per pt she has clips in head and cant have any MRIs done. Past Anesthesia/Blood Transfusion Reactions: Motion Sickness Additional Past Anesthesia/Blood Transfusion Reaction / Comment(s): Also has problems with dizziness. Past Psychological History: Anxiety Smoking Status: Never smoker Past Alcohol Use History: None Reported Past Drug Use History: None Reported - Past Family History Mother Family Medical History: No Reported History Father Family Medical History: No Reported History Brother(s) Family Medical History: Cancer, Diabetes Mellitus Medications and Allergies Home Medications Medication Instructions Recorded Confirmed Type Spironolactone [Aldactone] 100 mg PO BID 03/26/14 02/14/19 History Apixaban [Eliquis] 5 mg PO BID 06/15/16 02/14/19 History Meclizine HCl 25 mg PO DAILY PRN 11/08/16 02/14/19 History Pioglitazone HCl [Actos] 30 mg PO DAILY 12/20/16 02/14/19 History Hydrocodone/Acetaminophen [[place] 1 tab PO Q6HR PRN 02/01/17 02/14/19 History 7.5-325] metFORMIN HCL [Glucophage] 500 mg PO BID 02/01/17 02/14/19 History Atorvastatin [Lipitor] 10 mg PO HS 02/03/18 02/14/19 History Diazepam [Valium] 5 mg PO BID PRN 02/03/18 02/14/19 History Diltiazem HCl [Diltiazem ER] 180 mg PO DAILY 02/03/18 02/14/19 History Cholecalciferol [Vitamin D3] 5,000 unit PO DAILY 03/06/18 02/14/19 History Losartan Potassium 100 mg PO DAILY 03/06/18 02/14/19 History Metoprolol Tartrate [Lopressor] 50 mg PO BID #60 tab 03/06/18 02/14/19 Rx Insulin Regular, Human [NovoLIN R] 15 units SQ AC-TID 02/14/19 02/14/19 History Insulin Regular, Human [NovoLIN R] See Protocol SQ AC-TID 02/14/19 02/14/19 History Allergies Allergy/AdvReac Type Severity Reaction Status Date / Time celecoxib [From Celebrex] Allergy Unknown Verified 02/14/19 12:54 morphine Allergy Hallucinati Verified 02/14/19 12:54 ons Penicillins Allergy Rash/Hives Verified 02/14/19 12:54 Physical Exam Vitals: Vital Signs Temp Pulse Pulse Resp BP BP Pulse Ox 02/14/19 20:00 69 02/14/19 18:55 98.3 F 69 16 160/77 98 02/14/19 15:56 77 18 167/75 97 02/14/19 12:34 98.2 F 85 18 219/122 99 Intake and Output 02/14/19 02/14/19 02/14/19 06:59 14:59 22:59 Other: Voiding Method Toilet Weight 92.986 kg Results CBC & Chem 7: 02/14/19 13:53 02/14/19 13:53 Labs: Abnormal Lab Results - Last 24 Hours (Table) 02/14/19 02/14/19 02/14/19 Range/Units 13:53 13:53 20:18 Potassium 3.4 L (3.5-5.1) mmol/L Carbon Dioxide 32 H (22-30) mmol/L Glucose 301 H (74-99) mg/dL POC Glucose (mg/dL) 369 H (75-99) mg/dL Urine Protein Trace H (Negative) Urine Glucose (UA) 3+ H (Negative) Ur Leukocyte Esterase Trace H (Negative) Urine Mucus Rare H (None) /hpf Thrombosis Risk Factor Assmnt - Choose All That Apply Any of the Below Risk Factors Present?: Yes Each Factor Represents 1 point: Obesity (BMI >25) Other Risk Factors: Yes Each Risk Factor Represents 2 Points: Age 61-74 years Thrombosis Risk Factor Assessment Total Risk Factor Score: 3 Thrombosis Risk Factor Assessment Level: Moderate Risk
[2019-02-15 06:40] LABS: Glucose,Whole Blood 107 mg/dL (75-99)
[2019-02-15 07:59] VITALS: RESP 18
[2019-02-15] MEDS ORDERED: PIOGLITAZONE 30 MG TAB PO SCH (09:00)
[2019-02-15] MEDS ORDERED: METOPROLOL TARTRATE 50 MG TAB PO SCH (09:00)
[2019-02-15] MEDS ORDERED: LOSARTAN 50 MG TAB PO SCH (09:00)
[2019-02-15] MEDS ORDERED: CHOLECALCIFEROL 1,000 UNIT TAB PO SCH (09:00)
[2019-02-15] MEDS ORDERED: CHLORTHALIDONE 25 MG TAB PO SCH (10:00)
[2019-02-15] MEDS: INSULIN ASPART (NovoLOG) 100 UNIT/ML VIAL SQ SCH ×3 (11:31→17:12)
[2019-02-15] MEDS: metFORMIN 500 MG TAB PO SCH ×2 (11:36→17:11)
[2019-02-15] MEDS: APIXABAN 5 MG TAB PO SCH (11:36)
[2019-02-15] MEDS: CARVEDILOL 12.5 MG TAB PO SCH ×2 (11:36→17:11)
[2019-02-15] MEDS: ENOXAPARIN 40 MG/0.4 ML SYRINGE SQ SCH (11:37)
[2019-02-15] MEDS: DILTIAZEM CD 180 MG CAP.ER.24H PO SCH (11:37)
[2019-02-15] MEDS: SPIRONOLACTONE 25 MG TAB PO SCH (11:40)
[2019-02-15 11:45] LABS: Glucose,Whole Blood 204 mg/dL (75-99)
--- NOTE | 2019-02-15 12:13 | P.CRDCN ---
History of Present Illness History of present illness: This is a pleasant 68-year-old -[place] female past medical history significant for paroxysmal atrial fibrillation on long-term anticoagulation, hypertension, dyslipidemia, diabetes mellitus, brain aneurysm status post clipping repair, TIA and obstructive sleep apnea. She follows in the office with Dr. Orozco. We have been asked to see her in consultation secondary to abnormal EKG. She presented to the hospital with symptoms of headache and disorientation. She states she drove herself to the hospital because she knew her blood pressure was high. Upon arrival around noon time yesterday blood pressure was 219/122. She states she had not taken any of her home medications prior to arrival. She was given IV hydralazine. She states she has been following with her PCP for bronchitis for the last few weeks. She finished a course of antibiotics and steroids last week Tuesday. She continues to cough, non-productive. She also describes and pain around her chest described as a tight squeezing of her torso like her bra is too tight. This is worse when she coughs or takes a deep breath in. Currently chest pain free. EKG on arrival reveals sinus mechanism with LVH, T-wave abnormalities noted inferiorly and laterally. These findings are chronic and appear similar to previous EKG's as far back as 2013. Chest x-ray is negative for an acute cardiopulmonary process. Laboratory data reviewed, WBC 5.6, hemoglobin 13, platelets 228, sodium 141, potassium 3.4, creatinine 0.76, troponin negative 2. Current cardiac medications include Eliquis 5 mg twice a day, atorvastatin 10 mg daily, diltiazem 180 mg daily, losartan 100 mg daily, Lopressor 50 mg twice a day and Aldactone 100 mg twice a day. She recently underwent an echocardiogram in the office November 2018 revealing pres erved LV systolic function with ejection fraction 60%, grade 2 diastolic dysfunction, moderately dilated left atrium, mild mitral regurgitation and mild tricuspid regurgitation. Most recent stress test performed in the office with a Cardiolite stress test in January 2018 revealed impaired LV systolic function with global hypokinesia and ejection fraction of 40% with no evidence of stress-induced ischemia. At the time of my exam: CONSTITUTIONAL: Denies fever. Denies chills. EYES: Denies blurred vision. Denies vision changes. Denies eye pain. EARS, NOSE, MOUTH & THROAT: Denies headache. Denies sore throat. Denies ear pain. CARDIOVASCULAR: Denies chest pain. Denies shortness of breath. Denies orthopnea. Denies PND. Denies palpitations. RESPIRATORY: Denies cough. GASTROINTESTINAL: Denies abdominal pain. Denies diarrhea. Denies constipation. Denies nausea. Denies vomiting. MUSCULOSKELETAL: Denies myalgias. INTEGUMENTARY: Denies pruitis. Denies rash. NEUROLOGIC: Denies numbness. Denies tingling. Denies weakness. PSYCHIATRIC: Denies anxiety. Denies depression. ENDOCRINE: Denies fatigue. Denies weight change. Denies polydipsia. Denies polyurina. GENITOURINARY: Denies burning, hematuria or urgency with micturation. HEMATOLOGIC: Denies history of anemia. Denies bleeding. Blood pressure 165/94 heart rate 67 afebrile maintaining oxygen saturation on room air GENERAL: This is a 68-year-old -[place] female in no apparent distress at the time of my examination. HEENT: Head is atraumatic, normocephalic. Pupils are equal, round. Sclerae anicteric. Conjunctivae are clear. Mucous membranes of the mouth are moist. Neck is supple. There is no jugular venous distention. No carotid bruit is heard. LUNGS: Clear to auscultation no wheezes, rales or rhonchi. No chest wall tenderness is noted on palpation or with deep breathing. HEART: Regular rate and rhythm with systolic ejection murmur at the left sternal border, no rubs or gallops. S1 and S2 heard. ABDOMEN: Soft, nontender. Bowel sounds are heard. No organomegaly noted. EXTREMITIES: Trace bilateral lower extremity nonpitting edema and no calf tenderness noted. VASCULAR: Radial and dorsalis pedis pulses palpated, no evidence of clubbing. NEUROLOGIC: Patient is awake, alert and oriented x3. ASSESSMENT Accelerated hypertension Chest pain, pleuritic. An acute coronary event has been ruled out. Atypical for angina. Paroxysmal atrial fibrillation on long-term anticoagulation. Currently maintaining sinus mechanism Dyslipidemia Diabetes mellitus History of brain aneurysm status post clip repair Obstructive sleep apnea PLAN Recent echocardiogram obtained in the office has been reviewed, we will not repeat an echocardiogram on this admission. Change Lopressor to Coreg 25 mg twice a day. Initiate on [place] 25 mg daily. Continue to monitor blood pressures for an additional 24 hrs. Thank you kindly for this consultation. Nurse Practitioner note has been reviewed, I agree with a documented findings and plan of care. Patient was seen and examined. Past Medical History Past Medical History: Atrial Fibrillation, Asthma, CVA/TIA, Diabetes Mellitus, Hyperlipidemia, Hypertension, Sleep Apnea/CPAP/BIPAP Additional Past Medical History / Comment(s): neuropathy, 2 TIAs, AZUL with CPAP History of Any Multi-Drug Resistant Organisms: None Reported Past Surgical History: Hysterectomy, Tonsillectomy Additional Past Surgical History / Comment(s): cerebral aneursym repair- per pt she has clips in head and cant have any MRIs done. Past Anesthesia/Blood Transfusion Reactions: Motion Sickness Additional Past Anesthesia/Blood Transfusion Reaction / Comment(s): Also has problems with dizziness. Past Psychological History: Anxiety Smoking Status: Never smoker Past Alcohol Use History: None Reported Past Drug Use History: None Reported - Past Family History Mother Family Medical History: No Reported History Father Family Medical History: No Reported History Brother(s) Family Medical History: Cancer, Diabetes Mellitus Medications and Allergies Home Medications Medication Instructions Recorded Confirmed Type Spironolactone [Aldactone] 100 mg PO BID 03/26/14 02/14/19 History Apixaban [Eliquis] 5 mg PO BID 06/15/16 02/14/19 History Meclizine HCl 25 mg PO DAILY PRN 11/08/16 02/14/19 History Pioglitazone HCl [Actos] 30 mg PO DAILY 12/20/16 02/14/19 History Hydrocodone/Acetaminophen [[place] 1 tab PO Q6HR PRN 02/01/17 02/14/19 History 7.5-325] metFORMIN HCL [Glucophage] 500 mg PO BID 02/01/17 02/14/19 History Atorvastatin [Lipitor] 10 mg PO HS 02/03/18 02/14/19 History Diazepam [Valium] 5 mg PO BID PRN 02/03/18 02/14/19 History Diltiazem HCl [Diltiazem ER] 180 mg PO DAILY 02/03/18 02/14/19 History Cholecalciferol [Vitamin D3] 5,000 unit PO DAILY 03/06/18 02/14/19 History Losartan Potassium 100 mg PO DAILY 03/06/18 02/14/19 History Metoprolol Tartrate [Lopressor] 50 mg PO BID #60 tab 03/06/18 02/14/19 Rx Insulin Regular, Human [NovoLIN R] 15 units SQ AC-TID 02/14/19 02/14/19 History Insulin Regular, Human [NovoLIN R] See Protocol SQ AC-TID 02/14/19 02/14/19 History Allergies Allergy/AdvReac Type Severity Reaction Status Date / Time celecoxib [From Celebrex] Allergy Unknown Verified 02/14/19 12:54 morphine Allergy Hallucinati Verified 02/14/19 12:54 ons Penicillins Allergy Rash/Hives Verified 02/14/19 12:54 Physical Exam Vitals: Vital Signs Temp Pulse Pulse Pulse Resp BP BP 02/15/19 07:20 97.5 F L 67 18 165/94 02/15/19 04:00 98.1 F 77 16 170/98 02/14/19 23:56 98.2 F 74 14 169/76 02/14/19 20:00 69 02/14/19 18:55 98.3 F 69 16 160/77 02/14/19 15:56 77 18 167/75 02/14/19 12:34 98.2 F 85 18 219/122 Pulse Ox 02/15/19 07:20 98 02/15/19 04:00 97 02/14/19 23:56 98 02/14/19 20:00 02/14/19 18:55 98 02/14/19 15:56 97 02/14/19 12:34 99 Intake and Output 02/14/19 02/15/19 02/15/19 22:59 06:59 14:59 Other: Voiding Method Toilet Toilet # Voids 1 Results 02/14/19 13:53 02/14/19 13:53 Cardiac Enzymes 02/14/19 02/14/19 Range/Units 13:53 13:53 AST 17 (14-36) U/L Troponin I 0.017 (0.000-0.034) ng/mL Coagulation 02/14/19 Range/Units 13:53 PT 9.9 (9.0-12.0) sec APTT 22.2 (22.0-30.0) sec CBC 02/14/19 Range/Units 13:53 WBC 5.6 (3.8-10.6) k/uL RBC 4.40 (3.80-5.40) m/uL Hgb 13.0 (11.4-16.0) gm/dL Hct 40.0 (34.0-46.0) % Plt Count 228 (150-450) k/uL Comprehensive Metabolic Panel 02/14/19 Range/Units 13:53 Sodium 141 (137-145) mmol/L Potassium 3.4 L (3.5-5.1) mmol/L Chloride 102 (98-107) mmol/L Carbon Dioxide 32 H (22-30) mmol/L BUN 11 (7-17) mg/dL Creatinine 0.76 (0.52-1.04) mg/dL Glucose 301 H (74-99) mg/dL Calcium 8.9 (8.4-10.2) mg/dL AST 17 (14-36) U/L ALT 21 (9-52) U/L Alkaline Phosphatase 86 (38-126) U/L Total Protein 7.1 (6.3-8.2) g/dL Albumin 3.5 (3.5-5.0) g/dL Current Medications Generic Name Dose Route Start Last Admin Trade Name Freq PRN Reason Stop Dose Admin Hydrocodone Bitart/Acetaminophen 1 each 02/14/19 21:50 [place] 7.5-325 PO Q6HR PRN Pain Alprazolam 0.25 mg 02/14/19 17:40 Xanax PO Q6HR PRN Anxiety Apixaban 5 mg 02/14/19 21:00 02/14/19 21:52 Eliquis PO 5 mg BID JEN Administration Atorvastatin Calcium 10 mg 02/14/19 21:00 02/14/19 21:52 Lipitor PO 10 mg HS JEN Administration Cholecalciferol 5,000 unit 02/15/19 09:00 Vitamin D3 (25 Mcg = 1000 Iu) PO DAILY JEN Diazepam 5 mg 02/14/19 17:41 02/14/19 21:52 Valium PO 5 mg BID PRN Administration Anxiety Diltiazem HCl 180 mg 02/14/19 22:00 02/14/19 22:02 Cardizem Cd PO Not Given DAILY [facility] Enoxaparin Sodium 40 mg 02/14/19 22:00 02/14/19 22:04 Lovenox SQ Not Given DAILY [facility] Sodium Chloride 1,000 mls @ 50 mls/hr 02/14/19 17:45 02/14/19 21:52 Saline 0.9% IV Not Given .Q20H [facility] Insulin Aspart 0 unit 02/15/19 07:30 Novolog SQ ACHS [facility] Protocol Insulin Human Regular 15 unit 02/15/19 07:30 Humulin R SQ AC-TID [facility] Losartan Potassium 100 mg 02/15/19 09:00 Cozaar PO DAILY JEN Meclizine HCl 25 mg 02/14/19 17:41 Antivert PO DAILY PRN Motion Sickness Metformin HCl 500 mg 02/14/19 21:00 02/14/19 21:52 Glucophage PO 500 mg BID-W/MEALS [facility] Administration Metoprolol Tartrate 50 mg 02/14/19 21:02 02/14/19 21:52 Lopressor PO 50 mg BID [facility] Administration Naloxone HCl 0.2 mg 02/14/19 17:40 Narcan IV Q2M PRN Opioid Reversal Pioglitazone HCl 30 mg 02/15/19 09:00 Actos PO DAILY [facility] Spironolactone 100 mg 02/14/19 22:00 02/14/19 22:01 Aldactone PO 100 mg BID [facility] Administration Intake and Output 02/14/19 02/15/19 02/15/19 22:59 06:59 14:59 Other: Voiding Method Toilet Toilet # Voids 1 02/14/19 13:53 02/14/19 13:53
[2019-02-15] MEDS: INSULIN REGULAR 100 UNIT/ML VIAL SQ SCH ×3 (12:26→17:11)
[2019-02-15 15:59] VITALS: BP 149/85; PULSE 64; TEMP 98.1
[2019-02-15 17:08] LABS: Glucose,Whole Blood 213 mg/dL (75-99)
--- NOTE | 2019-02-16 21:50 | P.DS ---
Providers Date of admission: 02/14/19 17:51 Expected date of discharge: 02/15/19 Attending physician: William Alonso Consults: 02/14/19 21:56 Consult Physician Routine Consulting Provider: Gomez Kimball Consult Reason/Comments: abnormal eKG Do you want consulting provider notified?: Yes Primary care physician: [facility] Course: Discharge diagnosis: -Accelerated hypertension, . -Paroxysmal atrial fibrillation currently in sinus rhythm on Eliquis -Diabetes mellitus type 2 on oral hypoglycemic -Hyperlipidemia -Obstructive sleep apnea uses CPAP machine -Anxiety disorder not otherwise specified -Social stressors -Obesity BMI 37.5 VITAL SIGNS: 98.1, 64, 18, 149 seconds 5, 98% room air ir GENERAL: Well-built, BMI 37.5, laying in bed, but anxious. EYES: Pupils equal. Conjunctiva normal. HEENT: External appearance of nose and ears normal, oral cavity grossly normal. NECK: JVD not raised; masses not palpable. HEART: First and second heart sounds are normal; no edema. LUNGS: Respiratory rate normal; clear to auscultation. ABDOMEN: Soft, nontender, liver spleen not palpable, no masses palpable. LYMPHATICS: No lymph nodes palpable in the axilla and neck. PSYCH: [Alert and oriented x3; mood and affect anxious l. NEUROLOGICAL: Cranial nerves grossly intact; no facial asymmetry, power and sensation grossly intact. Investigations: Reviewed in the clinical context White count 5.6, hemoglobin 13, platelets is 228, potassium 3.4, BUN 11, creatinine 0.76, Troponin 0.017 EKG tracing personally reviewed by me shows flipped T waves in leads fever or V4 to V6 and some subtle changes in inferior leads Hospital course: Patient admitted with a bit of anxiety social stressors and uncontrolled blood pressure. Medications were adjusted. Blood pressure is well controlled by the time of discharge. Patient seen by Dr. VC Tran from cardiology. No further testing per him. Cleared for discharge. Patient Condition at Discharge: Stable Plan - Discharge Summary New Discharge Prescriptions: New Carvedilol [Coreg] 25 mg PO BID #60 tablet Chlorthalidone [Hygroton] 25 mg PO DAILY #30 tab Continue Spironolactone [Aldactone] 100 mg PO BID Apixaban [Eliquis] 5 mg PO BID Meclizine HCl 25 mg PO DAILY PRN PRN Reason: Motion Sickness Pioglitazone HCl [Actos] 30 mg PO DAILY metFORMIN HCL [Glucophage] 500 mg PO BID Hydrocodone/Acetaminophen [[place] 7.5-325] 1 tab PO Q6HR PRN PRN Reason: Pain Atorvastatin [Lipitor] 10 mg PO HS Diltiazem HCl [Diltiazem 24Hr ER] 180 mg PO DAILY Diazepam [Valium] 5 mg PO BID PRN PRN Reason: Anxiety Cholecalciferol [Vitamin D3 (25 Mcg = 1000 Iu)] 5,000 unit PO DAILY Losartan Potassium 100 mg PO DAILY Insulin Regular, Human [NovoLIN R] 15 units SQ AC-TID Insulin Regular, Human [NovoLIN R] See Protocol SQ AC-TID Discontinued Metoprolol Tartrate [Lopressor] 50 mg PO BID #60 tab Discharge Medication List Spironolactone [Aldactone] 100 mg PO BID 03/26/14 [History] Apixaban [Eliquis] 5 mg PO BID 06/15/16 [History] Meclizine HCl 25 mg PO DAILY PRN 11/08/16 [History] Pioglitazone HCl [Actos] 30 mg PO DAILY 12/20/16 [History] Hydrocodone/Acetaminophen [[place] 7.5-325] 1 tab PO Q6HR PRN 02/01/17 [History] metFORMIN HCL [Glucophage] 500 mg PO BID 02/01/17 [History] Atorvastatin [Lipitor] 10 mg PO HS 02/03/18 [History] Diazepam [Valium] 5 mg PO BID PRN 02/03/18 [History] Diltiazem HCl [Diltiazem 24Hr ER] 180 mg PO DAILY 02/03/18 [History] Cholecalciferol [Vitamin D3 (25 Mcg = 1000 Iu)] 5,000 unit PO DAILY 03/06/18 [History] Losartan Potassium 100 mg PO DAILY 03/06/18 [History] Insulin Regular, Human [NovoLIN R] 15 units SQ AC-TID 02/14/19 [History] Insulin Regular, Human [NovoLIN R] See Protocol SQ AC-TID 02/14/19 [History] Carvedilol [Coreg] 25 mg PO BID #60 tablet 02/15/19 [Rx] Chlorthalidone [Hygroton] 25 mg PO DAILY #30 tab 02/15/19 [Rx] Follow up Appointment(s)/Referral(s): Ivan Bell DO [Primary Care Provider] - 1-2 days Erlin Orozco MD [STAFF PHYSICIAN] - 2 Weeks Patient Instructions/Handouts: Heart Healthy Diet (GEN) Discharge Disposition: HOME SELF-CARE
== END 2019-02-15 18:33 | disposition home or self-care (01) ==
LOC: EC 12:33 → 1SOBS 17:51
PROVIDERS: ADMIT Hospitalist; ATTEND Hospitalist
DX: I16.0 Hypertensive urgency (principal); I48.0 Paroxysmal atrial fibrillation; J45.909 Unspecified asthma, uncomplicated; I10 Essential (primary) hypertension; G47.33 Obstructive sleep apnea (adult) (pediatric); E78.5 Hyperlipidemia, unspecified; E11.42 Type 2 diabetes mellitus with diabetic polyneuropathy; G89.29 Other chronic pain; F41.9 Anxiety disorder, unspecified; Z68.37 Body mass index [BMI] 37.0-37.9, adult; E66.9 Obesity, unspecified; Z60.9 Problem related to social environment, unspecified; R94.31 Abnormal electrocardiogram [ECG] [EKG]; R42 Dizziness and giddiness; R05 Cough; I08.1 Rheumatic disorders of both mitral and tricuspid valves; R07.81 Pleurodynia; Z79.01 Long term (current) use of anticoagulants; Z79.891 Long term (current) use of opiate analgesic; Z79.4 Long term (current) use of insulin; Z79.899 Other long term (current) drug therapy; Z88.0 Allergy status to penicillin; Z88.5 Allergy status to narcotic agent; Z88.8 Allergy status to other drugs, medicaments and biological substances; Z86.73 Personal history of transient ischemic attack (TIA), and cerebral infarction without residual deficits; Z90.710 Acquired absence of both cervix and uterus; Z99.89 Dependence on other enabling machines and devices; Z87.09 Personal history of other diseases of the respiratory system; Z86.79 Personal history of other diseases of the circulatory system; Z83.3 Family history of diabetes mellitus; Z80.9 Family history of malignant neoplasm, unspecified
CPT/HCPCS: 96361; 96374; 99284; 36415; 93005; 80053; 84484 ×2; 85025; 85610; 85730; 81001; 71046; G0378 ×2; J0360